=== PATIENT | male | born 1955 | race Caucasian/White ===

== ENCOUNTER → 2021-03-04 | Outpatient (CLI) | payer MEDICARE, OTHER ==
--- NOTE | 2021-03-04 15:58 | CT ---
EXAMINATION TYPE: CT pelvis wo con DATE OF EXAM: 03/04/2021 COMPARISON: None. HISTORY: Pelvic pain, bone pain. Pt mentioned issue with hardware CT DLP: 358.50 mGycm Automated exposure control for dose reduction was used. FINDINGS: Partial visualization of long segment interpedicular rods and screws through the lumbar spine extendi ng into the left and right iliac bone. Alignment is satisfactory. No suspicious surrounding lucency. Alignment in the lower lumbar spine is satisfactory with moderate to severe disc space narrowing. Sac roiliac joints are symmetric and thought within normal limits. Pubic symphysis is intact. Hip joints show mild to moderate axial joint space loss and mild acetabular spurring. There is a stimulator ezekiel ce in the anterior pelvic wall with leads going posteriorly extending into the posterior subcutaneous tissue of the upper to mid lumbar spine on the localizer. No suspicious small or large bowel dilatation. There are a few distal colonic diverticula near juncti on of left and sigmoid colon. Prostate gland upper limits of normal in size. No free fluid in pelvis. No groin hernia or adenopathy. Mild to moderate calcified plaque of the aorta extends into branch ve ssels. IMPRESSION: As above.
== END | disposition home or self-care (01) ==
LOC: RADCTMAIN 15:14
PROVIDERS: ATTEND Orthopaedic Surgery
DX: R10.2 Pelvic and perineal pain (principal)
CPT/HCPCS: 72192

== ENCOUNTER 2021-06-22 07:30 | Inpatient (IN) | payer MEDICARE, OTHER ==
[2021-08-25 11:45] VITALS: BMI 23.7
[2021-08-31] MEDS ORDERED: GABAPENTIN 300 MG CAP PO PRN (05:00)
[2021-08-31] MEDS ORDERED: ONDANSETRON 4 MG/2 ML VIAL IVP PRN ×2 (05:00→14:48)
[2021-08-31] MEDS ORDERED: TRANEXAMIC ACID IN NACL,ISO-OS 1,000 MG in SALINE 1 100ML.BAG IVPB PRN (05:00)
[2021-08-31] MEDS ORDERED: ACETAMINOPHEN TAB 500 MG TAB PO PRN (05:00)
[2021-08-31] MEDS ORDERED: VANCOMYCIN 1,000 MG in SODIUM CHLORIDE 0.9% 250 ML IVPB PRN (05:00)
[2021-08-31] MEDS ORDERED: MIDAZOLAM 2 MG/2 ML VIAL IV PRN (05:45)
[2021-08-31] MEDS: LACTATED RINGERS 1,000 ML IV SCH (06:10)
--- NOTE | 2021-08-31 06:32 | P.HPOR ---
History of Present Illness H&P Date: 08/16/21 Chief Complaint: Low back pain, LE weakness, deformity Date of :[birth year] R14Age: 65 year Height: 5'11" Weight: 172 lbs BMI: 23.99 kg/m2 Occupation: Retired VAS: 6 CHIEF COMPLAINT: S/P T2-Pelvis PLIF HISTORY: Xrays No new xrays taken in office Trauma or injury No Work-Related No Pain description aching, sharp. Location posterior diffuse Activity Modification yes, unable to stand or ambulate for extended periods of time. Hand Dominance right DOS: T12-L5 PLIF [place] [address] Adan Ahn D.O in [place] TREATMENTS COMPLETED: 6 weeks of PT completed? No Physician directed home exercise completed? Yes, only exacerbates his symptoms. Medications yes List: Motrin 800mg, Zanaflex 4mg without improvement to his symptoms. Hydrocodone without relief. Alternative interventions Chiropractic?: No Brace: No Injections No RFA: No SUBJECTIVE: Patient presents to the office for another pre-operative appointment regarding his lumbar spine. Patient reports no significant changes to his symptoms since the time of the last appointment. He has failed conservative treatments and is ready to proceed with the planned procedure. All questions and concerns are addressed and the patient wishes to proceed with the planned procedure. Patient otherwise continues to deny any bladder or bowel issues, no perineal numbness/tingling, and ambulates independently.we discussed at length the different options for him and continue sought surgical intervention. His sister is present with him today agree. We discussed at length his smoking habits he needs to stop this however due to his deformity and current neurologic situation postponing surgery further would be detrimental to him, HPI: Patient last presented to the office on 06/14/2021 for a pre-operative appointment regarding his lumbar spine. Since the time of the last appointment the patient denies any improvements to his symptoms. Overall he notes that he is unable to complete most of his daily functions due to the severity of his pain and symptoms. Patient states that his current symptoms are debilitating and he has failed to improve with all conservative treatments tried thus far. He is currently taking Rockbridge 10mg TID with no improvements to his pain. He does still ambulate with a cane as he cannot walk without one due to being a fall risk. Patient otherwise denies any bladder or bowel issues, no perineal numbness/tingling, and ambulates with the use of a cane. All questions and concerns were addressed and the patient wishes to postpone with the planned procedure and would like to do this at a later date. I did actively warn them of the risks associated with postponing the surgery. Patient last presented to the office on 04/19/2021 for a re-check of his low back. He does present to the office to review the results of his CT myelogram of the thoracic and lumbar region obtained on 03/31/2021 Since the time of the last appointment he notes that he has seen no improvements to his symptoms. Regarding his symptoms he notes no improvements with conservative treatments. Due to his symptoms he notes continued difficulty with completing many of his daily functions due to the severity of his symptoms. He does ambulate with a cane as he cannot walk without one due to being a fall risk. Patient otherwise denies any bladder or bowel issues, no perineal numbness/tingling, and ambulates with the use of a cane. Mr. Díaz last presented to the office on 03/01/2021 for an evaluation of his low back. To review, the patient reports that in 2013 he did have a T12-L5 fusion. Additionally, he did have a spine stimulator implanted in 2017 that also did not improve his symptoms. Initially after the operation he reported good results and reduced pain. More recently he was doing some stretches and felt a "pop" in his low back. Since this he states that he has had increased pain about the low back that has severely limited his daily activities. This pain is diffuse throughout the low back and he denies any pain radiating down into the lower extremities. His pain increases with any ambulation or standing for extended periods of time. Regarding treatments Gerald states that he does take Motrin 800mg and Zanaflex 4mg PRN without any improvements to his symptoms. Additionally, he does do home exercises but this only aggravates his symptoms. Otherwise the patient denies any bladder or bowel issues. He presents to the office with the use of a cane for ambulation. The patients' past social, medical, family, surgical history, as well as review of systems, have been reviewed. Please refer to the Neurosurgery History and Physical form that has been scanned in to our electronic medical record system. Review of Systems 14 points review of systems completed and as stated in HPI, all other systems reviewed are negative. Past Medical History Past Medical History: Osteoarthritis (OA) History of Any Multi-Drug Resistant Organisms: None Reported Past Surgical History: Appendectomy, Back Surgery, Orthopedic Surgery Additional Past Surgical History / Comment(s): Back surgery in his mid 50's, left hand surgery, spinal cord implant(non-functioning). Past Anesthesia/Blood Transfusion Reactions: No Reported Reaction Past Psychological History: Anxiety, Bipolar Smoking Status: Current every day smoker Past Alcohol Use History: Occasional Additional Past Alcohol Use History / Comment(s): Smoker of 1 ppd since 19 yrs of age. Past Drug Use History: None Reported - Past Family History Mother Family Medical History: Cancer Additional Family Medical History / Comment(s): "Had blood clot in brain and ". Medications and Allergies Home Medications Medication Instructions Recorded Confirmed Type Benztropine Mesylate [Cogentin] 0.5 mg PO HS 08/25/21 08/31/21 History Ginseng 100 mg PO DAILY 08/25/21 08/25/21 History HYDROcodone/APAP 10-325MG [Rockbridge 1 tab PO TID 08/25/21 08/25/21 History 10-325] Magnesium (Unknown Dose) 1 tab PO HS 08/25/21 08/25/21 History Multivitamins, Thera [Multivitamin 1 tab PO 1200 08/25/21 08/25/21 History (formulary)] OLANZapine [ZyPREXA] 15 mg PO HS 08/25/21 08/31/21 History Farner-3 Fatty Acids/Fish Oil [Fish 1 each PO DAILY 08/25/21 08/25/21 History Oil 1,000 mg Softgel] Potassium (Unknown Dose) 1 tab PO HS 08/25/21 08/25/21 History QUEtiapine [SEROquel] 100 mg PO HS 08/25/21 08/31/21 History lamoTRIgine [LaMICtal] 25 mg PO 1200 08/25/21 08/31/21 History lamoTRIgine [LaMICtal] 200 mg PO QAM 08/25/21 08/25/21 History Allergies Allergy/AdvReac Type Severity Reaction Status Date / Time melatonin Allergy Chest Verified 08/31/21 05:59 Pressure Physical Examination Osteopathic Statement: *. No significant issues noted on an osteopathic structural exam other than those noted in the History and Physical/Consult. PHYSICAL EXAMINATION: General: Awake, alert, appropriate for age, in no acute distress. HEENT: No unusual neck masses around region of lateral neck triangle, thyroid, supraclavicular groove Heart: Regular rate and rhythm, normal S1, S2 and no murmur/gallop. Lungs: Clear to auscultation bilaterally with no use of accessory muscles. Extremities: Skin warm and dry without acute lesions, coloration, temperature, skin intact, no tenderness or erythema Integument: Hairy patches: Absent Dorsal skin dimples: Absent Cafe au lait spots: Absent Surgical incisions: No Palpation: Please see Pain drawing on Intake sheet for further detail. Midline spinal tenderness: No E6 Paralumbar tenderness: Yes L>R E6 Parathoracic tenderness: No E6 Buttocks tenderness: No E6 Special findings: No POSTURAL and MUSCULO-SKELETAL EVALUATION: Coronal Balance: NEUTRAL Recumbent testing: Patient is Not able to lay flat on back Sagittal Balance: Positive Shoulder Profile: LEVEL Pelvic Girdle: LEVEL Neck ROM: UNRESTRICTED Lumbar ROM: RESTRICTED Shoulder ROM: Symmetrical Hip ROM: Symmetrical Knee ROM: Symmetrical Hands: Normal appearance, symmetrical Feet: Normal appearance, Symmetrical VASCULAR STATUS : LEFT RIGHT Wrist Pulses INTACT INTACT Pedal Pulses (Dors. pedis & post.tibialis) INTACT INTACT Color NORMAL NORMAL Edema Absent Absent NEUROLOGIC EXAMINATION: Mental Status:Awake and alert, fully oriented, with normal attention, concentration and memory, and fluent, appropriate speech. Cranial Nerves: I: Olfactory not tested. II: Visual acuity normal, no visual field deficit noted with confrontation. III,IV: Normal pupillary reflexes & intact extraocular movements without nystagmus. V,: Intact symmetrical facial sensation. VII: Intact symmetrical facial motor movement VIII: Hearing intact. IX,X: Intact gag, swallow, & normal voice. XI: Sternocleidomastoid, trapezius function intact. XII: Tongue midline with normal movements. L'hermitte's Sign: Negative / absent Spurling'Sign: Absent bilaterally. Cubital percussion test: Absent bilaterally. Chiara-Tinel sign - Carpal region: Absent bilaterally. Straight Leg Raising: Absent bilaterally. Crossed straight leg raise: negative O8 MOTOR EXAM (0-5/5, N/T) STRENGTH RIGHT LEFT Shoulder Abd (not part of the DEVON score) 5 5 Elbow Flexors 5 5 Elbow Extensor 5 5 Wrist Dorsiflexors 5 5 Finger Abductor 5 5 Agricultural Scientist 5 5 Hip Flexor (Not part of DEVON Motor score) 4 4 Knee Flexor 4 4 Knee Extensor 4 4 Ankle dorsiflexor 4 4 Ankle plantarflexion 4 4 Extensor hallucis 4 4 Generalized weakness in LE b/l without focal deficits. Pt has difficulty getting around secondary to his deformity at this time although therapy is helping him with this. REFLEXES(0-4/2, NT) RIGHT LEFT Upper Extremities 2 2 Lower Extremities 1 2 Pathological Reflexes RIGHT LEFT Zapata's Absent Absent Clonus Absent Absent Babinski Absent Absent # Indicates mechanical impairment Muscle appearance: Symmetrical, without signs of atrophy or dystrophy. Rectal Tone:Deferred Normal, strong with volition control Sensory system (0-4, N/T) Test type RU GABRIEL RL LL Joint-Position 2 2 2 2 Vibration 2 2 2 2 Pain & LT sense 2 2 2 2 Dermatomal Deficit: None None L3-4 L3, L4, L5, S1 Gait and Functional Evaluation: Ambulatory aids: independently Romberg's test: Intact bilaterally Toe heel walk / heel-toe walk intact while maintaining satisfactory balance? No Squatting/straightening w/o assistance to a min of 60 degree knee flexion? No Single leg stance: intact Trendelenburg sign negative bilaterally Hand and finger dexterity intact bilaterally? yes Disdiadochokinesis examination negative bilaterally? yes Results XRay taken on 03/01/21 of Lumbar, Pelvis Spine: Xrays of the L spine show post surgical changes from L2-pelvis with instrumentation screws and rods at these levels b/l. The proximal portion has had failure with the rods and screws at L2 no longer associated. There is local kyphosis at L2-3 and L1-2 related to proximal junctional failure from this incident. There is severe erosion of the L1 VB secondary to spondylosis and the kyphosis resulting. The remainder of the screws are in position with no evidence of failure or loosening. There is some interbody fusion processes noted, however no good posterolateral bone visualized. There is a sub cutaneous stimulator noted in the L spine. There are no other fractures or lesions noted. AP pelvis shows hardware as mentioned. No fracture or dislocation b/l hip OA CT Myelogram of the thoracic spine completed on 03/31/[address] Santiago indicates: Widespread spondylotic changes noted with flattening of the normal kyphosis. There is disc bulges noted at the lower thoracic segments not causing significant stenosis. There is no fracture noted at this time. CT Myelogram of the lumbar spine completed on 03/31/[address] Santiago indicates: There is sagittal and coronal deformity noted due to hardware failure at L2 and L2-3 failure. There is vacuum disc phenomena noted at these levels as well as collapse of L1 secondary to old fracture in this area. There is kyphotic alignment due to these factors along with hardware failure and jia disengagement from the screws. Set screws noted floating in soft tissues in this area. There is stenosis noted at the L1-3 levels as well. There is fusion noted below this at L3-P fusion with PL fusion noted. NO other fracture noted. No lesions. Assessment and Plan Assessment: It was my pleasure to have seen and examined Gerald. I reviewed the patient's clinical syndrome, physical findings, and imaging studies during the appointment today. It is my impression that the patient has a diagnosis of. 1. 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 LE weakness 4. Neurogenic claudication 5. Mechanical back pain I outlined the natural course history without intervention and various interventional options. Plan: Gerald Díaz is a 65 y/o white male presenting for evaluation of lumbar pain with bilateral lower extremity radiculopathy. It was my pleasure to have seen and examined Gerald Díaz. In our visit today we have had a chance to go over subjective complaints, physical examination findings and treatments including the natural course history without intervention and various interventional options. The patients imaging demonstrates, Xrays: of the L spine show post surgical changes from L2- pelvis with instrumentation screws and rods at these levels b/l. The proximal portion has had failure with the rods and screws at L2 no longer associated. There is local kyphosis at L2-3 and L1-2 related to proximal junctional failure from this incident. There is severe erosion of the L1 VB secondary to spondylosis and the kyphosis resulting. The remainder of the screws are in position with no evidence of failure or loosening. There is some interbody fusion processes noted, however no good posterolateral bone visualized. There is a sub cutaneous stimulator noted in the L spine. There are no other fractures or lesions noted. AP pelvis shows hardware as mentioned. No fracture or dislocation b/l hip OA. CT myelogram lumbar: There is sagittal and coronal deformity noted due to hardware failure at L2 and L2-3 failure. There is vacuum disc phenomena noted at these levels as well as collapse of L1 secondary to old fracture in this a yady. There is kyphotic alignment due to these factors along with hardware failure and jia disengagement from the screws. Set screws noted floating in soft tissues in this area. There is stenosis noted at the L1-3 levels as well. There is fusion noted below this at L3-P fusion with PL fusion noted. NO other fracture noted. No lesions. CT myelogram thoracic: Widespread spondylotic changes noted with flattening of the normal kyphosis. There is disc bulges noted at the lower thoracic segments not causing significant stenosis. There is no fracture noted at this time.On physical exam, Gerald Díaz demonstrates Generalized weakness in LE b/l without focal deficits. I have explained to the patient that as their condition progresses it will cause further neurological deficits and eventual paralysis. Based on the patients imaging, physical exam, and the rapid progression and disabling nature of their symptoms, at this time I recommend surgery in the form or a: Revision decompression and fusion from T8-pelvis. I discussed the risk and benefits of this procedure at length with Gerald Díaz. The patient and his significant other agreed to considered pursuing the procedure abovementioned. Prior to surgery, she should follow up with her PCP (Cardio, ID, IM etc) for clearance. Questions were invited and answered, and the patient wishes to proceed as outlined below. Currently, I am recommendin.Revision Decompression and fusion from T8-pelvis 2.Follow up with PCP for surgical clearance 3.Review of surgical risks and benefits as well as an educational packet on the proposed surgical procedure. Risks: All surgical procedures come with inherent risks, including those related to positioning, anesthesia, intraoperative findings, and postoperative complications. It is important to understand that surgery does not come with any guarantee of a successful outcome as complications and adverse events are always possible. The patient was given a handout in office today discussing the surgical procedure and risks associated with the intervention, both of which were discussed with the patient. These risks include but are not limited to the following: * Experiencing same, different or even worse symptoms in back, neck, arms, or legs compared to before surgery. Requiring further surgery or other forms of treatment presently or at some time in the future at same or other levels of the intended spine surgery. On an extreme but fortunately relatively rare basis severe complication such as blindness, stroke, heart attack, temporary and/or permanent nerve in jury, paralysis, coma, or may occur, sometimes without known explanation. Surgical complications may include but are not limited to risk of infection, fluid accumulation in the surgical dissection site, including a seroma or hematoma, that requires additional surgery, wound drainage, bleeding, new numbness or weakness, vision changes/loss, spinal fluid leakage, non-healing and/or infected incision, headaches, difficulty or inability to swallow, hoarseness, hemopneumothorax, pneumothorax, impotence, retrograde ejaculation, vaginal dryness; injury to nerves, spinal cord, blood vessels, lymphatics or other vital organs (i.e., bowel injury, injury to the great vessels); heterotopic bone formation; complications related to the hardware such as screws, rods, cages including misplaced hardware, device failure, instrumentation at the wrong spine level, hardware fracture/breakage, or hardware loosening; vertebral failure of the spinal column above or below the newly placed hardware; retained surgical instrumentations or devices and the need for further surgery. * Medical risks of the planned spine surgery include but are not limited to generalized Infections to the whole body or local areas outside of the surgical site (sepsis), heart attack, bleeding, anaphylaxis, meningitis, seizure, epilepsy, hearing loss, burn moctezuma, laceration of the head or other areas of the body, bruising, hypersensitivity of the skin, bladder over distension; allergic reaction; shoulder injury related to positioning; fat, blood and air clots to other areas of the body like heart, lungs, brain; failure of internal organs such as lungs, kidneys, liver and excessive bleeding. If blood transfusions are necessary, note that transfusions may cause intolerance reactions such as anaphylaxis or other complex reactions. Despite best efforts, the results of spine surgery might not heal in terms of bone, soft tissues such as skin, fascia, ligaments, and joints. Additionally, in order to achieve best possible results, spine surgery may be carried out beyond the initially planned levels and involve decompression, fusion including insertion of hardware at levels other than the original intended area of surgical interest change some portions of the procedure in order to ensure the best possible outcomes. With spine surgery and spinal fusion, there are different off label uses of inst rumentation (devices, implants and hardware) as well as biological substances (bone morphogenic proteins, demineralized bone matrix) as well as using extra bone from allograft sources (i.e. cadaver bone) or autograft (iliac crest bone, ribs, or the spine itself). The patient has been given information about these practices and their inherent risks and benefits. [facility] is an educational center that serves as a training facility for neurosurgical and orthopedic spine residents and fellows. Residents are physicians who are completing their surgical intensive training following [facility]. They assist in the operating room with direct supervision of the attending surgeons. Peck are surgeons who have completed their training and eligible for board certification. They have opted for an elective year of more specialized training in their field. They assist in the operating room under the supervision of the attending surgeons. Physician assistants are medically trained surgical providers who function in the outpatient, inpatient, and operating room setting under the direct supervision of the attending surgeon. [facility] has multiple operating rooms with single and overlapping rooms running daily. They currently function under the required guidelines as produced by the [facility] Finance Committee with regards to the overlapping rooms and will continue to comply with changes to this policy as they occur. The requirements include and are complied with as follows: (1) the critical portions of the overlapping rooms will not occur at the same time, (2) the attending physician will be physically present during the critical portions of the procedure and immediately available during the entire case, and (3) a back-up attending is designated should the primary attending not be immediately available. The patient has had a chance to review all the listed information, has been given print outs detailing this information, and has had all his/her questions answered to their satisfaction.discussed this with him and his sister who is in the room with him.discussed his smoking habits on how he needs to continue to quit smoking his cutback quite a bit however he is unable to completely stop smoking however given his neurologic deficit as well as dysphoria as well as hardware failure postponing surgery again is not with him his best interest to f eel. It was my pleasure to have seen and examined Gerald Díaz. In our visit today we have had a chance to go over my understanding of our patient's current condition, the natural course history without intervention and various interventional options. Questions were invited and answered, and the patient wishes to proceed as outlined above. I have seen and examined the patient for 25 minutes and we have spent more than 50% of the time in repeat and detailed counseling about the patient's condition, its natural course history with out and as much as can be predicted with surgery and re-review of various surgical treatment options. In conclusion, Gerald Díaz and his sister. requested we proceed with the above suggested surgery and are willing to accept risks and limitations of the suggested surgery as nature of the disease process and our best attempts at treatment for the condition. Thank you again for allowing us to be part of your patient's care. Please don't hesitate to contact me if you have any further questions. Signed and authenticated by: [employer] P:\\\\ppart\\\\Files\\\\L [id number] \\d Duane [facility] [address], [place] [address]
--- NOTE | 2021-08-31 06:44 | P.PN ---
Progress Note - Text Progress Note Date: 08/31/21 History and Physical UPDATE I have seen and examined the patient and reviewed the history and physical. There appear to be no significant changes in the patient's current medical status as outlined in the current History and Physical.
[2021-08-31] MEDS ORDERED: fentaNYL (PF) 50 MCG/ML 2 ML AMP ONE (07:21)
[2021-08-31] MEDS ORDERED: SODIUM CHLORIDE 0.9% 100 ML BAG ONE (07:21)
[2021-08-31] MEDS ORDERED: LIDOCAINE 1% INJ 10MG/ML (20 ML MDV) ONE (07:21)
[2021-08-31] MEDS ORDERED: PHENYLEPHRINE-0.9% NACL SYG 1,000 MCG/10 ML SYRINGE ONE (07:21)
[2021-08-31] MEDS ORDERED: PROPOFOL 10 MG/ML 20 ML VIAL IV ONE (07:21)
[2021-08-31] MEDS ORDERED: NEOSTIGMINE 1 MG/ML 10 ML VIAL ONE (07:21)
[2021-08-31] MEDS ORDERED: GLYCOPYRROLATE 0.2 MG/ML 2 ML VIAL ONE (07:21)
[2021-08-31] MEDS ORDERED: MIDAZOLAM 2 MG/2 ML VIAL ONE (07:21)
[2021-08-31] MEDS ORDERED: ceFAZolin 1,000 MG VIAL ONE (07:21)
[2021-08-31] MEDS ORDERED: HYDROmorphone (PF) 1 MG/ML ONE (07:21)
[2021-08-31] MEDS ORDERED: ROCURONIUM 10 MG/ML (5 ML VIAL) IV ONE (07:21)
[2021-08-31] MEDS ORDERED: TRANEXAMIC ACID IN NACL,ISO-OS 1,000 MG/100 ML BAG ONE (07:21)
[2021-08-31] MEDS ORDERED: SUCCINYLCHOLINE CHLORIDE 100 MG/5 ML SYR IV ONE (07:21)
[2021-08-31] MEDS ORDERED: SODIUM CHLORIDE 0.9% IRRIG 1,000 ML BTL IRRIGATION ONE (07:21)
[2021-08-31] MEDS ORDERED: HEPARIN SODIUM,PORCINE 10,000 UNIT/ML 1 ML VIAL ONE (07:21)
[2021-08-31] MEDS ORDERED: LACTATED RINGERS 1,000 ML IV ONE ×6 (07:25→14:05)
[2021-08-31] MEDS ORDERED: THROMBIN (RECOMBINANT) 5,000 UNIT VIAL TOPICAL ONE ×2 (07:30→10:11)
[2021-08-31] MEDS ORDERED: BUPIVACAIN-EPI 0.25%-1:200,000 30 ML VIAL SQ ONE (07:30)
[2021-08-31] MEDS ORDERED: GELATIN SPONGE,ABSORB (LARGE) 1 EACH SPONGE TOPICAL ONE (07:30)
[2021-08-31] MEDS ORDERED: ceFAZolin 3,000 MG in SODIUM CHLORIDE 0.9% IRRIGATIO 3,000 ML IRRIGATION ONE ×8 (08:44→09:55)
[2021-08-31] MEDS ORDERED: VANCOMYCIN 1,000 MG VIAL MISCELLANE ONE ×2 (09:23→13:38)
[2021-08-31] MEDS ORDERED: TOBRAMYCIN SULFATE 1.2 GM VIAL MISCELLANE ONE (09:23)
--- NOTE | 2021-08-31 14:28 | FL ---
EXAMINATION TYPE: FL guidance operating room DATE OF EXAM: 08/31/2021 HISTORY: Fluoroscopy time 3 minutes and 9 seconds of fluoroscopy provided. IMPRESSION: 1. Fluoroscopy time.
--- NOTE | 2021-08-31 14:29 | XR ---
EXAM TYPE: LUMBAR SPINE X RAY SERIES COMPARISON: NONE HISTORY: Hardware placement TECHNIQUE: 39 views are submitted. FINDINGS: Images are limited resolution due to intraoperative technique. Extensive postsurgical changes are not ed. The screws involving the sacrum extending well past the anterior margin the sacrum. IMPRESSION: 1. Intraoperative hardware placement
[2021-08-31] MEDS ORDERED: MAGNESIUM HYDROXIDE 2,400 MG/10 ML CUP PO PRN (14:48)
[2021-08-31] MEDS ORDERED: CYCLOBENZAPRINE 5 MG TAB PO PRN (14:48)
[2021-08-31] MEDS ORDERED: SENNOSIDES-DOCUSATE SODIUM 1 EACH TAB PO PRN (14:48)
[2021-08-31] MEDS ORDERED: HYDROmorphone 0.5 MG/0.5 ML SYRINGE IVP ONE ×4 (15:03→15:23)
[2021-08-31] MEDS ORDERED: NALOXONE 0.4 MG/ML 1 ML VIAL IV PRN (15:41)
[2021-08-31] MEDS ORDERED: HYDROmorphone PCA 10 MG/50 ML BAG IV PRN (15:41)
[2021-08-31] MEDS ORDERED: MORPHINE SULFATE 4 MG/ML SYRINGE IV ONE (15:43)
--- NOTE | 2021-08-31 15:45 | P.PN ---
Progress Note - Text Progress Note Date: 08/31/21 Postop: . Patient seen and examined they are doing well. Their pain is under control at this time. They are moving all 4 extremities without any issues. Vital signs are stable.. They are currently recovering and will be transferred to the floor once deemed stable by the PACU team and anesthesiologist. No Other issues at this time they deny fever chills shortness of breath or chest pain. Medical management pending Continue with intravenous fluids, pain medication, muscle relaxers, home medication Soft diet to start to advance as tolerated We will evaluate the patient in the morning.
[2021-08-31 16:08] LABS: Glucose,Whole Blood 135 mg/dL (75-99)
[2021-08-31] MEDS ORDERED: LORazepam 2 MG/ML INJ IV PRN (16:50)
[2021-08-31] MEDS: SODIUM CHLORIDE 0.9% 1,000 ML IV SCH (16:58)
[2021-08-31] MEDS ORDERED: SODIUM CHLORIDE 0.9% 500 ML 500 ML IV ONE (17:02)
[2021-08-31] MEDS: GABAPENTIN 300 MG CAP PO SCH ×2 (17:18→20:58)
[2021-08-31] MEDS: polyethylene glycoL 3350 17 GM POWD.PACK PO SCH (20:58)
[2021-08-31] MEDS: OLANZapine 7.5 MG TAB PO SCH (20:58)
[2021-08-31] MEDS: BENZTROPINE MESYLATE 0.5 MG TAB PO SCH (20:58)
[2021-08-31] MEDS: QUEtiapine 100 MG TAB PO SCH (21:06)
[2021-08-31] MEDS: NICOTINE 21MG/24HR PATCH TRANSDERM SCH (21:06)
[2021-08-31] MEDS: HYDROmorphone 0.5 MG/0.5 ML SYRINGE IVP PRN (22:15)
[2021-09-01] MEDS ORDERED: ACETAMINOPHEN TAB 325 MG TAB PO PRN (01:20)
[2021-09-01] MEDS: SODIUM CHLORIDE 0.9% 1,000 ML IV SCH ×2 (04:56→20:03)
--- NOTE | 2021-09-01 06:58 | CONS ---
CONSULTATION REASON FOR CONSULTATION: Medical management consult. He is status post lumbar surgery per Dr. Santiago. He is on his home medicines for bipolar, schizophrenia. He is very anxious, wants to get out of the bed even though he just had surgery. We gave him Ativan for sedation. Medicines were reviewed. REVIEW OF SYMPTOMS: 14-point review of systems otherwise negative. PHYSICAL EXAMINATION: He is lethargic, swollen in the face. Temp 97-98, pulse is 90s to low 100s. Blood pressure is 90s/50s, O2 95% on 2 L. CARDIOVASCULAR S1, S2. LUNGS: Clear. GI soft, nontender. Negative Homans. ASSESSMENT: 1. Status post lumbar laminectomy. 2. Schizophrenia, bipolar. 3. Hypertension. 4. Possibly some dehydration secondary to surgery. We will give him some fluids overnight due to hypotension. Prognosis guarded. MMODL / DEBRAN: [id number] /
--- NOTE | 2021-09-01 07:44 | P.PN ---
Subjective Progress Note Date: 09/01/21 Principal diagnosis: Status post revision T10 to pelvis decompression and fusion with bilateral open SI fusion Patient seen and examined today. Patient had just returned from CT scan, states he is doing well. 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 Last night there was a report of low blood pressure, bolus provided of 500 mL. Pressures this morning are stable. The night nurse states that patient sat up on the edge of the bed and tolerated activity well. Ashton catheter remains with adequate output. Surgical incision is clean dry and intact no shadowing noted on dressing. Hemovac is present on the right of the incision, last night drain was compressed. Informed nurses this morning that it needs to be opened to gravity. Patient denies any fever/chills, nausea/vomiting, or chest pain. Denies any perineal numbness or tingling. Objective - Vital Signs Vital signs: Vital Signs Temp 99.4 F 09/01/21 04:32 Pulse 73 09/01/21 04:32 Resp 18 09/01/21 00:50 BP 90/53 09/01/21 04:32 Pulse Ox 96 09/01/21 04:32 Intake & Output 08/31/21 09/01/21 09/01/21 18:59 06:59 18:59 Intake Total 5077 75 Output Total 1460 1360 Balance 3617 -1285 Weight 76.9 kg Intake: IV 4152 75 0.9 75 Intake, IV Titration 725 Amount Sodium Chloride 0.9% 1, 225 000 ml @ 75 mls/hr IV . [id number] [facility] Rx#:[id number] Sodium Chloride 0.9% 500 500 ml 500 ml @ 999 mls/hr IV .Q31M ONE Rx#:[id number] Oral 200 Output: Drainage 510 Back 510 Urine 760 850 Estimated Blood Loss 700 Other: Voiding Method Indwelling Catheter Indwelling Catheter - Exam Physical Examination General: The patient is awake and alert, in no acute distress Skin: Skin is warm and dry with no obvious rashes or lesions. Hairy patches absent, no dorsal skin dimples, no cafe au lait spots. There is a midline surgical incision present to the thoracic and lumbar region. Eye: Pupils are equal, round and reactive to light, extra-ocular movements are intact; there is normal conjunctiva bilaterally. Neck: The neck is supple, there is no tenderness and ROM intact. Cardiovascular: There is a regular rate and rhythm. No murmur, rub or gallop is appreciated. Respiratory: Lungs are clear to auscultation, respirations are non-labored, breath sounds are equal. Gastrointestinal: Soft, non-distended, non-tender abdomen . Back: There is slight tenderness to palpation in the midline, paralumbar, parathoracic region. Pt denies any buttock pain or tenderness. There is no obvious deformity . Musculoskeletal: ROM limited secondary to pain and stiffness from surgical procedure. Shoulder abduction 5/5, elbow flexors 5/5, wrist dorsiflexors 5/5. finger abductor 5/5, picture enlarger 5/5, hip flexor 4/5, knee flexor 4/5, ankle dorsiflexor 4/5, ankle plantarflexion 4/5 and extensor hallucis 4/5. Neurological: CN 2-12 intact. There are no obvious motor or sensory deficits. Movement and coordination equal and intact. Sensory exam to light touch intact C5-T1 and intact from L2-S1. Reflexes 2/4 in bilateral upper and lower extremities. Negative Hoffmans, babinski, and clonus signs. Psychiatric: Cooperative, appropriate mood & affect, normal judgment. - Labs Labs: Abnormal Lab Results - Last 24 Hours (Table) 08/31/21 Range/Units 16:06 POC Glucose (mg/dL) 135 H (75-99) mg/dL Assessment and Plan Assessment: Postop day 1: Status post revision T10 to pelvis decompression and fusion with bilateral open SI fusion Plan: Plan: -Appreciate portrait consultant and team management. -Activity: Ambulate QID, OOB all meals, up and about, limit lifting bending twisting to less than 5 lbs. Use walker or cane if needed for stability. -Daily PT/OT, increase ambulation strength and balance. -Brace when up and about, not needed in bed or chair -Pain control: Adequate at this time with Dilaudid BEATING MACHINE OPERATOR -Meds: reviewed -GI ppx: senna, Miralax -DC ashton when up and about, bedside commode if needed -DVT PPX: OK to restart Heparin tonight -Hygiene: Shower today. Maintain dressing clean and dry. Meticulous cleaning after BMs away from the incision site -Drains: Maintain for now at gravity. -Encourage IS 10x/hr -Dispo: Anticipate discharge home in the next 24-48hrs with homecare *I reviewed and discussed this case with my attending Dr. Santiago, whom has reviewed this chart and films and is in agreement with assessment and plan of care as outlined above. I have personally seen and examined the patient, performed the documentation and the assessment and plan as written. Number of minutes spent on the visit: 20m Time with Patient: Less than 30
[2021-09-01] MEDS: GABAPENTIN 300 MG CAP PO SCH ×3 (08:56→22:21)
[2021-09-01] MEDS: NICOTINE 21MG/24HR PATCH TRANSDERM SCH (08:56)
--- NOTE | 2021-09-01 09:02 | CT ---
EXAMINATION TYPE: CT thor lumbar spine wo con DATE OF EXAM: 09/01/2021 COMPARISON: Presurgical outside studies March 31, 2021 HISTORY: post [id number] fusion CT DLP: 2065.6 mGycm Automated exposure control for dose reduction was used. FINDINGS: There is redemonstration of 5 lumbar type vertebra with mild height loss involving the L1 vertebra. T here is vertebroplasty at T10 and T11 levels. There are now posterior interpedicular rods and screws transfixing T10 level through the sacrum extending through the sacroiliac joints bilaterally. Alignme nt is stable and straightened. Posterior decompression changes over the lower spine with laminectomy defects and spinous process resection are redemonstrated. There is no posterior subcutaneous gas. The re is percutaneous drainage catheter terminating near the posterior L2 level. New Metallic disc mate rial along-L2 and L2-L3 levels. Persistent moderate to severe disc space narrowing L3-L4 through the L5-S1 levels. Review of axial images shows normal position appears satisfactory. [id number] calcified plaque of the abdominal aorta extends into iliac branch vessels. Waters catheter is noted within bladder. IMPRESSION: As above. Stable and satisfactory alignment after a longer segment fusion surgery.
[2021-09-01 09:56] LABS: Basophils # (A) 0.01 X 10*3/uL (0.00-0.10); Basophils % (A) 0.1 %; Eosinophils # (A) 0 X 10*3/uL (0.04-0.35); Eosinophils % (A) 0 %; HCT 28.4 % (39.6-50.0); HGB 9.2 g/dL (13.0-17.0); Immature Grans, Automated 0.6 %; Lymphocytes # (A) 1.41 X 10*3/uL (0.90-5.00); Lymphocytes % (A) 9.7 %; MCHC 32.4 g/dL (32.0-37.0); Mean Platelet Volume 10.2 fL (9.5-12.2); Monocytes # (A) 1.02 X 10*3/uL (0.20-1.00); NRBC Per 100 WBC 0 /100 WBCS (0.0-0.0); Neutrophils # (A) 11.94 X 10*3/uL (1.80-7.70); Neutrophils % (A) 82.6 %; Platelet Count 153 X 10*3/uL (140-440); RBC 2.63 X 10*6/uL (4.40-5.60); WBC 14.47 X 10*3/uL (4.50-10.00)
[2021-09-01 10:08] LABS: African American GFR (CKD) 81.8 (60.0-200.0); Anion Gap 9.3 mmol/L (10.00-18.00); BUN/Creat Ratio 10.64 Ratio (12.00-20.00); Blood Urea Nitrogen 11.7 mg/dL (9.0-27.0); Calcium 7.6 mg/dL (8.7-10.3); Carbon Dioxide 22.7 mmol/L (20.0-27.5); Globulin 1.5 g/dL (1.6-3.3); Non-African American GFR(CKD) 70.6 (60.0-200.0); Potassium 4.1 mmol/L (3.5-5.5); Total Bilirubin 0.7 mg/dL (0.30-1.20); Total Protein 4.5 g/dL (6.2-8.2)
[2021-09-01] MEDS: LACTATED RINGERS 1,000 ML IV SCH (10:39)
--- NOTE | 2021-09-01 12:02 | P.ANPRN ---
Procedure Note - Anesthesia - Invasive Line Right Central Line Time Out Performed: Yes (07) Date of Procedure: 08/31/21 Time of Procedure: 07:01 Location of Patient: PreOp Preparation: Sterile Prep, Sterile Dressing Ultrasound Used: Yes Purpose - Visualization and Identification of Vasculature: Yes Image Stored and Saved: Yes Narrative: Central line placement per sterile. Patient was placed in trendelenberg posture. Right side of the neck cleaned with Betadine iodine solution. Neck was draped. I nternal Internal jugular vein identified with ultrasound. 3% lidocaine infiltrated. Vein was entered with a finder needle over catheter. Guide wireless passed and confirmed with ultrasound. Double lumen central venous catheter threaded over the guide wire. Guide wire was pulled out and the line was suture to the skin. Then dressed with my biopatch and tegaderm. Patient tolerated the procedure very well with no apparent complications.
[2021-09-01] MEDS: MULTIVITAMINS, THERA 1 EACH TAB PO SCH (12:15)
[2021-09-01] MEDS: IPRATROPIUM-ALBUTEROL 3 ML NEB INHALATION SCH ×2 (15:27→19:40)
--- NOTE | 2021-09-01 15:30 | PN ---
PROGRESS NOTE This 65-year-old white male is still maintaining a low blood pressure 87/52 postop lumbar surgery. Temperature 99.6, O2 is 97 on room air. White count is 14.4, hemoglobin 9.2 postop. Neutrophils are high at 11.9. He remains on broad-spectrum antibiotics status post lumbar surgery. Albumin is low at 3. He had a thoracolumbar spine CT today which shows stable and satisfactory alignment after a longer segment fusion surgery, new posterior interpedicular rods and screws transecting T10 level metallic disc material along L2, L3, persistent moderate to severe disk narrowing at L3, L4, L5, S1. Continue with fluids postoperatively as he is hypotensive. Wean off LEAD REFINER due to hypotension. Urinal at the bedside. TLSO brace. Updraft treatments due to shortness of breath. Prognosis is guarded. PT/OT. Possibly home in the next couple of days. MMODL / IJN: [id number] /
[2021-09-01] MEDS ORDERED: DILTIAZEM 125 MG in SODIUM CHLORIDE 0.9% 100 ML IV SCH (19:45)
[2021-09-01] MEDS: HYDROmorphone 1 MG/ML 1 ML SYRINGE IVP PRN (20:30)
[2021-09-01] MEDS: QUEtiapine 100 MG TAB PO SCH (22:21)
[2021-09-01] MEDS: BENZTROPINE MESYLATE 0.5 MG TAB PO SCH (22:21)
[2021-09-01] MEDS: polyethylene glycoL 3350 17 GM POWD.PACK PO SCH (22:22)
[2021-09-01] MEDS: OLANZapine 7.5 MG TAB PO SCH (22:22)
[2021-09-02] MEDS: HYDROcodone/APAP 7.5-325MG 1 EACH TAB PO PRN ×2 (00:12→12:32)
[2021-09-02] MEDS: LACTATED RINGERS 1,000 ML IV SCH (03:16)
[2021-09-02] MEDS: SODIUM CHLORIDE 0.9% 1,000 ML IV SCH (06:34)
[2021-09-02] MEDS: GABAPENTIN 300 MG CAP PO SCH ×3 (08:22→22:13)
[2021-09-02] MEDS: NICOTINE 21MG/24HR PATCH TRANSDERM SCH (08:22)
[2021-09-02] MEDS: lamoTRIgine 100 MG TAB PO SCH (08:22)
[2021-09-02] MEDS: HYDROmorphone 1 MG/ML 1 ML SYRINGE IVP PRN ×2 (08:23→14:51)
--- NOTE | 2021-09-02 08:31 | P.PN ---
Subjective Progress Note Date: 09/02/21 Principal diagnosis: Status post revision T10 to pelvis decompression and fusion with bilateral open SI fusion Patient seen and examined today. Mr. Díaz is currently resting in bed. He states that his pain is not controlled at this time, medication will be adjusted. Patient had been moved to [address] [place] [address] last night due to new onset of atrial fibrillation. Patient is currently on a Cardizem drip. Vital signs stable. Patient is currently asymptomatic. Upon assessment of incision and drain; midline dressing of lumbar spine is clean dry and intact. Hemovac present to the right of the incision output of 160 mL last night. Hemovac dressings saturated and partially rolled up, dressing changed at this time with bedding and linen also. Patient tolerated rolling side to side and pulling himself up in bed. Patient states that the upper portion of his legs feel weak. Encouragement provided for patient to be up in chair and working with PT today. Awaiting TLSO brace to be delivered. Mr. Díaz denies any fever/chills, nausea/vomiting, or chest pain. Patient denies any numbness tingling into the lower extremities or perineal area. Patient states he is voiding adequately in urinal. Denies loss of bowel or bladder. Objective - Vital Signs Vital signs: Vital Signs Temp 98.0 F 09/02/21 03:43 Pulse 120 H 09/02/21 03:43 Resp 18 09/02/21 03:43 BP 100/50 09/02/21 03:43 Pulse Ox 95 09/02/21 03:43 Intake & Output 09/01/21 09/02/21 09/02/21 18:59 06:59 18:59 Intake Total 2900 20 Output Total 945 810 Balance 1954 - Intake: IV 20 Invasive Line 1 20 Intake, IV Titration 1300 Amount Sodium Chloride 0.9% 1, 1250 000 ml @ 75 mls/hr IV . [id number] [facility] Rx#:[id number] ceFAZolin 2 gm In Sodium 50 Chloride 0.9% 50 ml @ 100 mls/hr IVPB Q8HR [facility] Rx# :[id number] Oral 1600 Output: Drainage 70 160 Back 70 160 Urine 875 650 Other: Voiding Method Indwelling Catheter Urinal # Voids 0 - Exam Physical Examination Physical examination recalled from yesterday, any changes have been noted below: General: The patient is awake and alert, in no acute distress Skin: Skin is warm and dry with no obvious rashes or lesions. Hairy patches absent, no dorsal skin dimples, no cafe au lait spots. There is a midline surgical incision present to the thoracic and lumbar region, Hemovac present to the right of the surgical incision. Eye: Pupils are equal, round and reactive to light, extra-ocular movements are intact; there is normal conjunctiva bilaterally. Slight swelling noted due to surgical procedure. Neck: The neck is supple, there is no tenderness and ROM intact. Cardiovascular: There is a regular rate and rhythm. No murmur, rub or gallop is appreciated. Respiratory: Lungs are clear to auscultation, respirations are non-labored, breath sounds are equal. Gastrointestinal: Soft, non-distended, non-tender abdomen . Back: There is slight tenderness to palpation in the midline, paralumbar, parathoracic region. Pt denies any buttock pain or tenderness. There is no obvious deformity . Musculoskeletal: ROM limited secondary to pain and stiffness from surgical procedure. Shoulder abduction 5/5, elbow flexors 5/5, wrist dorsiflexors 5/5. finger abductor 5/5, bottle washer 5/5, hip flexor 4/5, knee flexor 4/5, ankle dorsiflexor 4/5, ankle plantarflexion 4/5 and extensor hallucis 4/5. Neurological: CN 2-12 intact. There are no obvious motor or sensory deficits. Movement and coordination equal and intact. Sensory exam to light touch intact C5-T1 and intact from L2-S1. Reflexes 2/4 in bilateral upper and lower extremities. Negative Hoffmans, babinski, and clonus signs. Psychiatric: Cooperative, appropriate mood & affect, normal judgment. - Labs CBC & Chem 7: 09/01/21 04:46 09/01/21 04:46 Labs: Abnormal Lab Results - Last 24 Hours (Table) 09/01/21 04 Range/Units 04:46 04:46 WBC 14.47 H (4.50-10.00) X 10*3/uL RBC 2.63 L (4.40-5.60) X 10*6/uL Hgb 9.2 L (13.0-17.0) g/dL Hct 28.4 L (39.6-50.0) % MCV 108.0 H (80.0-97.0) fL MCH 35.0 H (27.0-32.0) pg Immature Gran # 0.09 H (0.00-0.04) X 10*3/uL Neutrophils # 11.94 H (1.80-7.70) X 10*3/uL Monocytes # 1.02 H (0.20-1.00) X 10*3/uL Eosinophils # 0 L (0.04-0.35) X 10*3/uL Anion Gap 9.30 L (10.00-18.00) mmol/L BUN/Creatinine Ratio 10.64 L (12.00-20.00) Ratio Calcium 7.6 L (8.7-10.3) mg/dL AST 45 H (14-35) U/L Total Protein 4.5 L (6.2-8.2) g/dL Albumin 3.0 L (3.8-4.9) g/dL Globulin 1.5 L (1.6-3.3) g/dL Assessment and Plan Assessment: Postop day 1: Status post revision T10 to pelvis decompression and fusion with bilateral open SI fusion Plan: Plan: -Appreciate statistical consultant and team management. -Activity: Ambulate QID, OOB all meals, up and about, limit lifting bending twisting to less than 5 lbs. Use walker or cane if needed for stability. -Daily PT/OT, increase ambulation strength and balance. -TLSO Brace when up and about, not needed in bed or chair -Pain control: Adequate at this time, medications adjusted to scheduled. -Meds: reviewed -GI ppx: senna, Miralax -DVT PPX: Per medical -Hygiene: Shower today. Maintain dressing clean and dry. Meticulous cleaning after BMs away from the incision site -Drains: Maintain for now at gravity. -Encourage IS 10x/hr -Dispo: Anticipate discharge home in the next 24-48hrs with homecare. *I reviewed and discussed this case with my attending Dr. Santiago, whom has reviewed this chart and films and is in agreement with assessment and plan of care as outlined above. I have personally seen and examined the patient, performed the documentation and the assessment and plan as written. Number of minutes spent on the visit: 20m Time with Patient: Less than 30
[2021-09-02] MEDS: IPRATROPIUM-ALBUTEROL 3 ML NEB INHALATION SCH ×4 (08:35→20:15)
[2021-09-02] MEDS ORDERED: DEXTROSE 5% IN WATER 100 ML with AMIODARONE 150 MG IV ONE (11:20)
[2021-09-02] MEDS ORDERED: AMIODARONE 360 MG in DEXTROSE 5% IN WATER 200 ML IV ONE ×2 (11:30)
--- NOTE | 2021-09-02 12:31 | P.CRDCN ---
History of Present Illness History of present illness: HISTORY OF PRESENTING ILLNESS This is a pleasant 65-year-old male past medical history significant for anxiety, bilateral lower extremity radiculopathy s/p prior surgery. He does not follow with a database management specialist. We have been asked to see in consultation for new onset atrial fibrillation with RVR. Patient presents to the hospital for a planned procedure. On 08/31/21, He underwent revision T10 to pelvis decompression and fusion with bilateral open SI fusion by Ortho. Patient seen and examined at bedside, he states his lower back pain is not controlled. He denies any palpitations, dizziness, chest pain, shortness of breath, lightheadedness. He denies history of CAD, [place], Stroke, Diabetes, hypertension, high cholesterol, or atrial fibrillation. On 09/01/21, patient was noted to be tachycardic, found to be in atrial flutter with HR 150s-160s. Patient did have symptoms of lightheadedness only. He was transferred to . Started on Cardizem drip. Telemetry reviewed, patient has been in and out of atrial fibrillation and flutter with RVR. HR 140s this morning, Cardizem drip increased to 10mg/hr and patient converted appeared to be in atrial flutter with controlled ventricular rates DIAGNOSTICS EKG reveals atrial flutter with RVR, heart rates 154 Laboratory reviewed, WBC 14.4, hemoglobin 9.2, platelets 153, sodium 135, potassium 4.1, BUN 11, serum creatinine 1.1. Current home medications include Zyprexa, Lamictal, Seroquel, congentin and, potassium, Whitney, multivitamin REVIEW OF SYSTEMS At the time of my exam: CONSTITUTIONAL: Denies fever or chills. CARDIOVASCULAR: Denies chest pain, shortness of breath, orthopnea, PND or palpitations. RESPIRATORY: Denies cough. GASTROINTESTINAL: Denies abdominal pain, diarrhea, constipation, nausea or vomiting. MUSCULOSKELETAL: Denies myalgias. NEUROLOGIC: Denies numbness, tingling, headacbe or weakness. ENDOCRINE: Denies fatigue, weight change, polydipsia or polyurina. GENITOURINARY: Denies burning, hematuria or urgency with micturation. HEMATOLOGIC: Denies history of anemia or bleeding. PHYSICAL EXAMINATION Vitals blood pressure 100/58, heart rate 135, afebrile, saturations 97% on 3 L nasal cannula CONSTITUTIONAL: No apparent distress. HEENT: Head is normocephalic. Pupils are equal, round. Sclerae anicteric. Mucous membranes of the mouth are moist. No JVD. No carotid bruit. CHEST EXAMINATION: Lungs are clear to auscultation. No chest wall tenderness is noted on palpation or with deep breathing. HEART EXAMINATION: Irregular rate and rhythm. S1, S2 heard. No murmurs, gallops or rub. ABDOMEN: Soft, nontender. Positive bowel sounds. EXTREMITIES: 2+ peripheral pulses, no lower extremity edema and no calf tenderness. SKIN: Warm, dry NEUROLOGIC EXAMINATION: Patient is awake, alert and oriented x3. ASSESSMENT Paroxysmal atrial fibrillation, and atypical flutter with RVR, new onset -[id number] score 0, however, his this year will put him at 1 Status post revision T10 to pelvis decompression and fusion with bilateral open SI fusion on 08/31. PLAN Discontinue cardizem Start amiodarone bolus and IV drip Per Viki MITCHELL ok to start anticoagulation 48 hours after procedure We will start Eliquis 5mg BID tomorrow and consult case management for coverage Obtain 2D echocardiogram Check TSH Further recommendations based on clinical course Nurse practitioner note has been reviewed by physician. Signing provider agrees with the documented findings, assessment, and plan of care. Past Medical History Past Medical History: Osteoarthritis (OA) History of Any Multi-Drug Resistant Organisms: None Reported Past Surgical History: Appendectomy, Back Surgery, Orthopedic Surgery Additional Past Surgical History / Comment(s): Back surgery in his mid 50's, left hand surgery, spinal cord implant(non-functioning). Past Anesthesia/Blood Transfusion Reactions: No Reported Reaction Past Psychological History: Anxiety, Bipolar Smoking Status: Current every day smoker Past Alcohol Use History: Occasional Additional Past Alcohol Use History / Comment(s): Smoker of 1 ppd since 19 yrs of age. Past Drug Use History: None Reported - Past Family History Mother Family Medical History: Cancer Additional Family Medical History / Comment(s): "Had blood clot in brain and ". Medications and Allergies Home Medications Medication Instructions Recorded Confirmed Type Benztropine Mesylate [Cogentin] 0.5 mg PO HS 08/25/21 08/31/21 History Ginseng 100 mg PO DAILY 08/25/21 08/25/21 History HYDROcodone/APAP 10-325MG [Whitney 1 tab PO TID 08/25/21 08/25/21 History 10-325] Magnesium (Unknown Dose) 1 tab PO HS 08/25/21 08/25/21 History Multivitamins, Thera [Multivitamin 1 tab PO 1200 08/25/21 08/25/21 History (formulary)] OLANZapine [ZyPREXA] 15 mg PO HS 08/25/21 08/31/21 History Sheridan-3 Fatty Acids/Fish Oil [Fish 1 each PO DAILY 08/25/21 08/25/21 History Oil 1,000 mg Softgel] Potassium (Unknown Dose) 1 tab PO HS 08/25/21 08/25/21 History QUEtiapine [SEROquel] 100 mg PO HS 08/25/21 08/31/21 History lamoTRIgine [LaMICtal] 25 mg PO 1200 08/25/21 08/31/21 History lamoTRIgine [LaMICtal] 200 mg PO QAM 08/25/21 08/25/21 History Apixaban [Eliquis] 5 mg PO BID 30 Days #60 tab 09/02/21 Rx Allergies Allergy/AdvReac Type Severity Reaction Status Date / Time melatonin Allergy Chest Verified 08/31/21 05:59 Pressure Physical Exam Vitals: Vital Signs Temp Pulse Pulse Resp BP Pulse Ox 09/02/21 03:43 98.0 F 120 H 18 100/50 95 09/02/21 00:00 98.2 F 95 16 97/54 97 09/01/21 20:00 99.3 F 140 H 16 108/65 96 09/01/21 17:33 99.1 F 123 H 15 101/65 96 09/01/21 15:39 75 09/01/21 15:30 85 09/01/21 15:00 99.6 F 104 H 16 99/61 93 L 09/01/21 08:00 99.6 F 99 16 87/52 97 Intake and Output 09/01/21 09/02/21 09/02/21 22:59 06:59 14:59 Intake Total 1470 Output Total 875 810 Balance 595 -810 Intake: IV 20 Invasive Line 1 20 Intake, IV Titration 700 Amount Sodium Chloride 0.9% 1, 650 000 ml @ 75 mls/hr IV . [id number] [facility] Rx#:[id number] ceFAZolin 2 gm In Sodium 50 Chloride 0.9% 50 ml @ 100 mls/hr IVPB Q8HR [facility] Rx# :[id number] Oral 750 Output: Drainage 160 Back 160 Urine 875 650 Other: Voiding Method Urinal Urinal # Voids 0 Results 09/01/21 04:46 09/01/21 04:46 Cardiac Enzymes 09/01/21 Range/Units 04:46 AST 45 H (14-35) U/L CBC 09/01/21 Range/Units 04:46 WBC 14.47 H (4.50-10.00) X 10*3/uL RBC 2.63 L (4.40-5.60) X 10*6/uL Hgb 9.2 L (13.0-17.0) g/dL Hct 28.4 L (39.6-50.0) % Plt Count 153 (140-440) X 10*3/uL Comprehensive Metabolic Panel 09/01/21 Range/Units 04:46 Sodium 135 (135-145) mmol/L Potassium 4.1 (3.5-5.5) mmol/L Chloride 103 (96-109) mmol/L Carbon Dioxide 22.7 (20.0-27.5) mmol/L BUN 11.7 (9.0-27.0) mg/dL Creatinine 1.1 (0.6-1.5) mg/dL Glucose 100 (70-110) mg/dL Calcium 7.6 L (8.7-10.3) mg/dL AST 45 H (14-35) U/L ALT 19 (10-49) U/L Alkaline Phosphatase 64 (41-126) U/L Total Protein 4.5 L (6.2-8.2) g/dL Albumin 3.0 L (3.8-4.9) g/dL Current Medications Generic Name Dose Route Start Last Admin Trade Name Freq PRN Reason Stop Dose Admin Acetaminophen 650 mg 09/01/21 01:20 09/01/21 01:23 Acetaminophen Tab 325 Mg Tab PO 650 mg Q6HR PRN Administration Fever and/ or Pain Hydrocodone Bitart/Acetaminophen 1 each 08/31/21 14:54 09/02/21 00:12 Hydrocodone/Apap 7.5-325mg 1 Each Tab PO 1 each Q6HR PRN Administration Pain Albuterol/Ipratropium 3 ml 09/01/21 16:00 09/01/21 19:40 Ipratropium-Albuterol 3 Ml Neb INHALATION Not Given RT-QID [facility] Benztropine Mesylate 0.5 mg 08/31/21 21:00 09/01/21 22:21 Benztropine Mesylate 0.5 Mg Tab PO 0.5 mg HS [facility] Administration Cyclobenzaprine HCl 5 mg 08/31/21 14:48 Cyclobenzaprine 5 Mg Tab PO TID PRN Muscle Spasm Gabapentin 300 mg 08/31/21 16:00 09/01/21 22:21 Gabapentin 300 Mg Cap PO 300 mg TID [facility] Administration Hydromorphone HCl 0.5 mg 08/31/21 14:48 08/31/21 22:15 Hydromorphone 0.5 Mg/0.5 Ml Syringe IVP 0.5 mg Q3HR PRN Administration Pain Scale 4 - 6 Hydromorphone HCl 1 mg 08/31/21 14:55 09/01/21 20:30 Hydromorphone 1 Mg/Ml 1 Ml Syringe IVP 1 mg Q4HR PRN Administration Pain Lactated Ringer's 1,000 mls @ 20 mls/hr 08/31/21 05:45 09/02/21 03:16 Lactated Ringers IV Not Given .Q24H [facility] Cefazolin Sodium 2 gm/ Sodium 50 mls @ 100 mls/hr 08/31/21 16:00 09/02/21 00:12 Chloride IVPB 100 mls/hr Q8HR [facility] Administration Sodium Chloride 1,000 mls @ 75 mls/hr 08/31/21 15:00 09/02/21 06:34 Saline 0.9% IV Not Given .[id number] [facility] Diltiazem HCl 125 mg/ Sodium 125 mls @ 5 mls/hr 09/01/21 19:45 09/01/21 20:02 Chloride IV 5 mg/hr .Q24H [facility] 5 mls/hr Administration 5 MG/HR Lamotrigine 25 mg 09/02/21 12:00 Lamotrigine 25 Mg Tab PO 1200 [facility] Lamotrigine 200 mg 09/02/21 09:00 Lamotrigine 100 Mg Tab PO QAM [facility] Lorazepam 0.5 mg 08/31/21 16:50 08/31/21 16:56 Lorazepam 2 Mg/Ml Inj IV 0.5 mg Q6HR PRN Administration Anxiety Magnesium Hydroxide 2,400 mg 08/31/21 14:48 Magnesium Hydroxide 2,400 Mg/10 Ml Cup PO DAILY PRN Constipation Multivitamins 1 each 09/01/21 12:00 09/01/21 12:15 Multivitamins, Thera 1 Each Tab PO 1 each 1200 [facility] Administration Naloxone HCl 0.2 mg 08/31/21 15:41 Naloxone 0.4 Mg/Ml 1 Ml Vial IV Q2M PRN Opioid Reversal Nicotine 1 patch 08/31/21 21:00 09/01/21 08:56 Nicotine 21mg/24hr Patch TRANSDERM 1 patch DAILY [facility] Administration Olanzapine 15 mg 08/31/21 21:00 09/01/21 22:22 Olanzapine 7.5 Mg Tab PO 15 mg HS [facility] Administration Ondansetron HCl 4 mg 08/31/21 14:48 Ondansetron 4 Mg/2 Ml Vial IVP Q8HR PRN Nausea And Vomiting Polyethylene Glycol 17 gm 08/31/21 21:00 09/01/21 22:22 Polyethylene Glycol 3350 17 Gm Powd.Pack PO 17 gm HS [facility] Administration Quetiapine Fumarate 100 mg 08/31/21 21:00 09/01/21 22:21 Quetiapine 100 Mg Tab PO 100 mg HS [facility] Administration Senna/Docusate Sodium 2 each 08/31/21 14:48 Sennosides-Docusate Sodium 1 Each Tab PO DAILY PRN Constipation Intake and Output 09/01/21 09/02/21 09/02/21 22:59 06:59 14:59 Intake Total 1470 Output Total 875 810 Balance 595 -810 Intake: IV 20 Invasive Line 1 20 Intake, IV Titration 700 Amount Sodium Chloride 0.9% 1, 650 000 ml @ 75 mls/hr IV . [id number] [facility] Rx#:[id number] ceFAZolin 2 gm In Sodium 50 Chloride 0.9% 50 ml @ 100 mls/hr IVPB Q8HR [facility] Rx# :[id number] Oral 750 Output: Drainage 160 Back 160 Urine 875 650 Other: Voiding Method Urinal Urinal # Voids 0 09/01/21 04:46 09/01/21 04:46
[2021-09-02] MEDS: MULTIVITAMINS, THERA 1 EACH TAB PO SCH (12:32)
[2021-09-02] MEDS: lamoTRIgine 25 MG TAB PO SCH (12:32)
--- NOTE | 2021-09-02 17:39 | ECHOF ---
Referral Reason:new onset afib MEASUREMENTS -------- HEIGHT: 180.3 cm WEIGHT: 76.7 kg BP: 100/58 RVIDd: 3.0 cm (< 3.3) IVSd: 1.1 cm (0.6 - 1.1) LVIDd: 4.1 cm (3.9 - 5.3) LVPWd: 1.0 cm (0.6 - 1.1) IVSs: 1.3 cm LVIDs: 2.4 cm LVPWs: 1.4 cm LAESV Index (A-L): 27.56 ml/m Ao Diam: 3.0 cm (2.0 - 3.7) AV Cusp: 2.1 cm (1.5 - 2.6) LA Diam: 3.6 cm (2.7 - 3.8) RAP: 5.00 mmHg RVSP: 27.81 mmHg FINDINGS -------- Atrial fibrillation. This was a technically adequate study. The left ventricular size is normal. There is borderline concentric left ventricular hypertrophy. Overall left ventricular systolic function is normal with, an EF between 55 - 60 %. The right ventricle is normal in size. Normal LA size by volume 22+/-6 ml/m2. The right atrial size is normal. Interatrial and interventricular septum intact. The aortic valve is trileaflet, and appears structurally normal. No aortic stenosis or regurgitation. The mitral valve is normal. There is trace mitral regurgitation. The tricuspid valve appears structurally normal. Mild tricuspid regurgitation present. Right vent ricular systolic pressure is normal at < 35 mmHg. The right ventricular systolic pressure, as measu red by Doppler, is 27.81mmHg. There is no pulmonic regurgitation present. The aortic root size is normal. IVC Not well visulized. There is no pericardial effusion. CONCLUSIONS -------- 1. Atrial fibrillation. 2. There is borderline concentric left ventricular hypertrophy. 3. Overall left ventricular systolic function is normal with, an EF between 55 - 60 %. 4. Normal LA size by volume 22+/-6 ml/m2. 5. The aortic valve is trileaflet, and appears structurally normal. No aortic stenosis or regurgitati on. 6. There is trace mitral regurgitation. 7. Mild tricuspid regurgitation present. DATA SECURITY ANALYST: Kellee Rosales [facility]
[2021-09-02] MEDS: HYDROcodone/APAP 7.5-325MG 1 EACH TAB PO SCH (18:54)
[2021-09-02] MEDS: OLANZapine 7.5 MG TAB PO SCH (22:13)
[2021-09-02] MEDS: CYCLOBENZAPRINE 5 MG TAB PO SCH (22:14)
[2021-09-02] MEDS: BENZTROPINE MESYLATE 0.5 MG TAB PO SCH (22:14)
[2021-09-02] MEDS: polyethylene glycoL 3350 17 GM POWD.PACK PO SCH (22:14)
[2021-09-02] MEDS: AMIODARONE 450 MG in DEXTROSE 5% IN WATER 250 ML IV SCH ×2 (22:14)
[2021-09-02] MEDS: QUEtiapine 100 MG TAB PO SCH (22:14)
[2021-09-03] MEDS: HYDROmorphone 1 MG/ML 1 ML SYRINGE IVP PRN (03:16)
[2021-09-03] MEDS: HYDROcodone/APAP 7.5-325MG 1 EACH TAB PO SCH ×4 (06:03→18:28)
--- NOTE | 2021-09-03 07:49 | P.PN ---
Subjective Progress Note Date: 09/03/21 Principal diagnosis: Status post revision T10 to pelvis decompression and fusion with bilateral open SI fusion Patient seen and examined today, resting in bed. Mr. Díaz states he felt that he slept better last night and that his pain is more controlled. He states that he has not been out of bed due to all of his lines running to him. Instructed patient that he needs to work with physical therapy today. I had Mr. Díaz roll and sit at the edge of the bed to assess his surgical incision. Dressing is clean dry and intact. Hemovac is still present to the right of the surgical incision. Output of the drain has been 0 mL overnight. Patient is to start eliquis this morning at 9 AM. If drain remains at a low output we will discontinue drain this afternoon. Patient tolerated activity very well. He states he was surprised on how well he did. Patient denies any numbness tingling to lower extremities. Patient has urinating on his own with use of the urinal. No bowel movement at this time the patient is passing gas. Denies fever/chills, nausea/vomiting, or chest pain. Objective - Vital Signs Vital signs: Vital Signs Temp 98.1 F 09/03/21 04:00 Pulse 130 H 09/03/21 04:00 Resp 18 09/03/21 04:00 BP 107/65 09/03/21 04:00 Pulse Ox 93 L 09/03/21 04:00 Intake & Output 09/02/21 09/03/21 09/03/21 18:59 06:59 18:59 Intake Total 1000.083 Output Total 1183 300 875 Balance -182.917 -300 -875 Intake: Intake, IV Titration 162.083 Amount Diltiazem 125 mg In 62.083 Sodium Chloride 0.9% 100 ml @ 5 MG/HR 5 mls/hr IV .Q24H [facility] Rx#:[id number] ceFAZolin 2 gm In Sodium 100 Chloride 0.9% 50 ml @ 100 mls/hr IVPB Q8HR [facility] Rx# :[id number] Oral 838 Output: Drainage 8 0 Back 8 0 Urine 1175 300 875 Other: Voiding Method Urinal Urinal # Voids 2 - Exam Physical Examination Physical examination recalled from yesterday, any changes have been noted below: General: The patient is awake and alert, in no acute distress Skin: Skin is warm and dry with no obvious rashes or lesions. Hairy patches absent, no dorsal skin dimples, no cafe au lait spots. There is a midline surgical incision present to the thoracic and lumbar region, Hemovac present to the right of the surgical incision. Eye: Pupils are equal, round and reactive to light, extra-ocular movements are intact; there is normal conjunctiva bilaterally. Neck: The neck is supple, there is no tenderness and ROM intact. Cardiovascular: There is a regular rate and rhythm. No murmur, rub or gallop is appreciated. Respiratory: Lungs are clear to auscultation, respirations are non-labored, breath sounds are equal. Gastrointestinal: Soft, non-distended, non-tender abdomen . Back: There is slight tenderness to palpation in the paralumbar, parathoracic region. Pt denies any buttock pain or tenderness. There is no obvious deformity . Musculoskeletal: ROM limited secondary to pain and stiffness from surgical pr ocedure. Shoulder abduction 5/5, elbow flexors 5/5, wrist dorsiflexors 5/5. finger abductor 5/5, flat locker 5/5, hip flexor 4/5, knee flexor 4/5, ankle dorsiflexor 4/5, ankle plantarflexion 4/5 and extensor hallucis 4/5. Neurological: CN 2-12 intact. There are no obvious motor or sensory deficits. Movement and coordination equal and intact. Sensory exam to light touch intact C5-T1 and intact from L2-S1. Reflexes 2/4 in bilateral upper and lower extremities. Negative Hoffmans, babinski, and clonus signs. Psychiatric: Cooperative, appropriate mood & affect, normal judgment. - Labs CBC & Chem 7: 09/01/21 04:46 09/01/21 04:46 Assessment and Plan Assessment: Postop day 3: Status post revision T10 to pelvis decompression and fusion with bilateral open SI fusion Plan: Plan: -Appreciate service loss control consultant and team management. -Activity: Ambulate QID, OOB all meals, up and about, limit lifting bending twisting to less than 5 lbs. Use walker or cane if needed for stability. -Daily PT/OT, increase ambulation strength and balance. -TLSO Brace when up and about, not needed in bed or chair -Pain control: Adequate at this time, medications adjusted to scheduled. -Meds: reviewed -GI ppx: senna, Miralax -DVT PPX: eliquis -Hygiene: Shower today. Maintain dressing clean and dry. Meticulous cleaning after BMs away from the incision site -Drains: Maintain for now at gravity, possibly discontinue later this afternoon 09/03/21. -Encourage IS 10x/hr -Dispo: Anticipate discharge home in the next 24-48hrs with homecare. *I reviewed and discussed this case with my attending Dr. Santiago, whom has reviewed this chart and films and is in agreement with assessment and plan of care as outlined above. I have personally seen and examined the patient, performed the documentation and the assessment and plan as written. Number of minutes spent on the visit: 20m
[2021-09-03] MEDS: IPRATROPIUM-ALBUTEROL 3 ML NEB INHALATION SCH ×4 (08:14→19:16)
[2021-09-03] MEDS: GABAPENTIN 300 MG CAP PO SCH ×3 (08:49→21:34)
[2021-09-03] MEDS: lamoTRIgine 100 MG TAB PO SCH (08:49)
[2021-09-03] MEDS: CYCLOBENZAPRINE 5 MG TAB PO SCH ×3 (08:49→21:36)
[2021-09-03] MEDS: APIXABAN 5 MG TAB PO SCH ×2 (08:49→21:36)
[2021-09-03] MEDS: NICOTINE 21MG/24HR PATCH TRANSDERM SCH (08:49)
[2021-09-03] MEDS: HYDROmorphone 0.5 MG/0.5 ML SYRINGE IVP PRN (08:50)
[2021-09-03 09:23] LABS: Basophils % (A) 0 %; Eosinophils % (A) 0 %; HCT 26.4 % (39.0-53.0); HGB 8.7 gm/dL (13.0-17.5); Lymphocytes # (A) 1.1 k/uL (1.0-4.8); Lymphocytes % (A) 10 %; MCH 36.5 pg (25.0-35.0); MCHC 33.1 g/dL (31.0-37.0); MCV 110.3 fL (80.0-100.0); Macrocytosis Marked; Mean Platelet Volume 8.1; Monocytes # (A) 0.5 k/uL (0-1.0); Monocytes % (A) 4 %; Neutrophils # (A) 9.5 k/uL (1.3-7.7); Neutrophils % (A) 84 %; Platelet Count 169 k/uL (150-450); RBC 2.39 m/uL (4.30-5.90); WBC 11.4 k/uL (3.8-10.6)
[2021-09-03 09:43] LABS: ALT 19 U/L (4-49); AST 71 U/L (17-59); African American GFR (CKD) >90 (>60 ml/min/1.73 sqM); Albumin 2.5 g/dL (3.5-5.0); Alkaline Phosphatase 64 U/L (38-126); Anion Gap 6 mmol/L; Blood Urea Nitrogen 7 mg/dL (9-20); Calcium 8.2 mg/dL (8.4-10.2); Carbon Dioxide 25 mmol/L (22-30); Chloride 103 mmol/L (98-107); Glucose 117 mg/dL (74-99); Non-African American GFR(CKD) >90 (>60 ml/min/1.73 sqM); Potassium 3.9 mmol/L (3.5-5.1); Sodium 134 mmol/L (137-145); Total Bilirubin 0.9 mg/dL (0.2-1.3)
[2021-09-03] MEDS: lamoTRIgine 25 MG TAB PO SCH (11:47)
[2021-09-03] MEDS: MULTIVITAMINS, THERA 1 EACH TAB PO SCH (11:48)
[2021-09-03] MEDS: AMIODARONE 200 MG TAB PO SCH ×3 (11:48→21:47)
--- NOTE | 2021-09-03 12:57 | P.PN ---
Subjective This is a pleasant 65-year-old male past medical history significant for anxiety, bilateral lower extremity radiculopathy s/p prior surgery. 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 We have been asked to see in consultation for new onset atrial fibrillation with RVR. Patient presents to the hospital for a planned procedure. On 08/31/21, He underwent revision T10 to pelvis decompression and fusion with bilateral open SI fusion by Ortho. Patient seen and examined at bedside, he states his lower back pain is not controlled. He denies any palpitations, dizziness, chest pain, shortness of breath, lightheadedness. He denies history of CAD, [place], Stroke, Diabetes, hypertension, high cholesterol, or atrial fibrillation. On 09/01/21, patient was noted to be tachycardic, found to be in atrial flutter with HR 150s-160s. Patient did have symptoms of lightheadedness only. He was transferred to . Started on Cardizem drip. Telemetry reviewed, patient has been in and out of atrial fibrillation and flutter with RVR. HR 140s this morning, Cardizem drip increased to 10mg/hr and patient converted appeared to be in atrial flutter with controlled ventricular rates 09/03/2021 Patient seen and examined at bedside, no acute distress. He continues to have lower back pain. Telemetry reviewed, patient in atrial fibrillation with co ntrolled ventricular rates 90s-100s, occasionally does get tachycardic up to the 120s. TSH was within normal limits. Echocardiogram revealed an EF of 5560% He's currently maintained on Eliquis 5 mg twice a day, IV amiodarone PHYSICAL EXAMINATION Vitals blood pressure 100/58, heart rate 135, afebrile, saturations 97% on 3 L nasal cannula CONSTITUTIONAL: No apparent distress. HEENT: Neck Supple. No JVD. CHEST EXAMINATION: Lungs are clear to auscultation. No chest wall tenderness is noted on palpation or with deep breathing. HEART EXAMINATION: Irregular rate and rhythm. S1, S2 heard. No murmurs, gallops or rub. ABDOMEN: Soft, nontender. Positive bowel sounds. EXTREMITIES: 2+ peripheral pulses, no lower extremity edema and no calf tenderness. SKIN: Warm, dry NEUROLOGIC EXAMINATION: Patient is awake, alert and oriented x3. ASSESSMENT Paroxysmal atrial fibrillation, and atypical flutter with RVR, new onset -[id number] score 0, however, his this year will put him at 1 Status post revision T10 to pelvis decompression and fusion with bilateral open SI fusion on 08/31. PLAN Discontinue IV amiodarone PO amiodarone 200mg TID 7 days, then 200mg BID for 7 days, then 200mg daily thereafter Per Viki MITCHELL ok to start anticoagulation, Started Eliquis 5mg BID Per case management Eliquis is covered. Continue cardiac telemetry Further recommendations based on clinical course Nurse practitioner note has been reviewed by physician. Signing provider agrees with the documented findings, assessment, and plan of care. Objective - Vital Signs Vital signs: Vital Signs Temp 98.4 F 09/03/21 11:45 Pulse 112 H 09/03/21 12:10 Resp 18 09/03/21 11:45 BP 101/69 09/03/21 11:45 Pulse Ox 98 09/03/21 11:45 Intake & Output 09/02/21 09/03/21 09/03/21 18:59 06:59 18:59 Intake Total 1000.083 Output Total 1183 300 875 Balance -182.917 -300 -875 Intake: Intake, IV Titration 162.083 Amount Diltiazem 125 mg In 62.083 Sodium Chloride 0.9% 100 ml @ 5 MG/HR 5 mls/hr IV .Q24H [facility] Rx#:[id number] ceFAZolin 2 gm In Sodium 100 Chloride 0.9% 50 ml @ 100 mls/hr IVPB Q8HR [facility] Rx# :[id number] Oral 838 Output: Drainage 8 0 0 Back 8 0 0 Urine 1175 300 875 Other: Voiding Method Urinal Urinal Urinal # Voids 2 - Labs CBC & Chem 7: 09/03/21 08:44 09/03/21 08:44 Labs: Abnormal Lab Results - Last 24 Hours (Table) 09/03/21 09/03/21 Range/Units 08:44 08:44 WBC 11.4 H (3.8-10.6) k/uL RBC 2.39 L (4.30-5.90) m/uL Hgb 8.7 L (13.0-17.5) gm/dL Hct 26.4 L (39.0-53.0) % MCV 110.3 H (80.0-100.0) fL MCH 36.5 H (25.0-35.0) pg Neutrophils # 9.5 H (1.3-7.7) k/uL Macrocytosis Marked A Sodium 134 L (137-145) mmol/L BUN 7 L (9-20) mg/dL Glucose 117 H (74-99) mg/dL Calcium 8.2 L (8.4-10.2) mg/dL AST 71 H (17-59) U/L Total Protein 5.0 L (6.3-8.2) g/dL Albumin 2.5 L (3.5-5.0) g/dL
--- NOTE | 2021-09-03 16:04 | PN ---
PROGRESS NOTE This 65-year-old white male is status post lumbar surgery, doing much better. He says his pain is 8 to 10 out of 10 still. Pulse rate is in low 100s. He was started on amiodarone and due to atrial fibrillation with rapid ventricular response. He is saturating 98 on room air. Blood pressure 101 over 60s. Cardiovascular irregularly irregular rhythm. Lungs with rales at the bases. Hematology negative Homans. Psych fair mood and affect. Hemoglobin is 9.2, white count 14.4, calcium 7.6. AST is 45, ALT 19, total albumin of 3 . ASSESSMENT: 1. Status post lumbar laminectomy. 2. Atrial fibrillation with rapid ventricular response. 3. Chronic obstructive pulmonary disease. 4. Nicotine addiction. PLAN: Continue treatment for atrial fibrillation with amiodarone. His pain is better controlled. Fine-tune and COPD. Physical therapy. Possibly go home soon. Wait for cardiology recommendations. MMODL / IJN: [id number] /
[2021-09-03] MEDS: AMIODARONE 450 MG in DEXTROSE 5% IN WATER 250 ML IV SCH ×2 (18:55)
[2021-09-03] MEDS: LACTATED RINGERS 1,000 ML IV SCH (20:37)
[2021-09-03] MEDS: SODIUM CHLORIDE 0.9% 1,000 ML IV SCH ×2 (20:37→21:51)
[2021-09-03] MEDS: polyethylene glycoL 3350 17 GM POWD.PACK PO SCH (21:33)
[2021-09-03] MEDS: BENZTROPINE MESYLATE 0.5 MG TAB PO SCH (21:34)
[2021-09-03] MEDS: QUEtiapine 100 MG TAB PO SCH (21:35)
[2021-09-03] MEDS: OLANZapine 7.5 MG TAB PO SCH (21:35)
[2021-09-03] MEDS: METOPROLOL TARTRATE 12.5 MG TAB PO SCH (21:35)
[2021-09-04] MEDS: HYDROcodone/APAP 7.5-325MG 1 EACH TAB PO SCH ×5 (02:06→23:57)
[2021-09-04] MEDS: LACTATED RINGERS 1,000 ML IV SCH (08:04)
[2021-09-04] MEDS: NICOTINE 21MG/24HR PATCH TRANSDERM SCH (08:39)
[2021-09-04] MEDS: CYCLOBENZAPRINE 5 MG TAB PO SCH ×3 (08:40→20:37)
[2021-09-04] MEDS: lamoTRIgine 100 MG TAB PO SCH (08:40)
[2021-09-04] MEDS: METOPROLOL TARTRATE 12.5 MG TAB PO SCH ×2 (08:40→20:36)
[2021-09-04] MEDS: GABAPENTIN 300 MG CAP PO SCH ×3 (08:40→20:36)
[2021-09-04] MEDS: APIXABAN 5 MG TAB PO SCH ×2 (08:40→20:37)
[2021-09-04] MEDS: AMIODARONE 200 MG TAB PO SCH ×3 (08:40→20:37)
[2021-09-04] MEDS: IPRATROPIUM-ALBUTEROL 3 ML NEB INHALATION SCH ×4 (09:09→19:39)
[2021-09-04 09:16] LABS: HCT 25.5 % (39.0-53.0); HGB 8.2 gm/dL (13.0-17.5); MCH 35.4 pg (25.0-35.0); MCHC 32.1 g/dL (31.0-37.0); MCV 110.5 fL (80.0-100.0); Macrocytosis Marked; Platelet Count 198 k/uL (150-450); RBC 2.31 m/uL (4.30-5.90); RDW 13.5 % (11.5-15.5); WBC 8.2 k/uL (3.8-10.6)
--- NOTE | 2021-09-04 12:08 | P.PN ---
Progress Note - Text Progress Note Date: 09/04/21 Diagnosis: 1. 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 LE weakness 4. Neurogenic claudication 5. Mechanical back pain Subjective: Patient was seen at bedside this morning resting comfortable lying in the left lateral recumbent position. Patient says therapy did come by this morning, however, patient says he is in too much pain to get up with therapy. Patient says physical therapy is coming by later today, and patient said he is willing to really get up later today with therapy. Patient says he is having pain and currently rates as 7/10. Patient says the pain is located along the incision on the lower back and describes as muscle aches. Patient denies any radiation pain down the legs. Patient does have a drain in place as well as opt foam dressing over incision on spine. Patient denies chest pain, fever, shortness breath, nausea, vomiting, change of vision, loss of bowel/bladder control. Objective: Opti foam dressing was removed from spine. [place] are well aligned in good place. No drainage present from incision. New opti-Foam dressing was placed over incision. Drain was pulled. 4 x 4 and Tegaderm was placed over drain in cision. Patient does have some mild to moderate tenderness during palpation along the lumbar spine. Patient has good range of motion bilateral upper extremities. Motor exam 4/5 in resisted hip flexion/extension, knee flexion/extension, ankle dorsi/plantar flexion in bilateral lower extremities. 5/5 in all other major motor groups. Sensation is equal, symmetric in upper and lower extremities bilaterally. Radial pulses intact, 2+ bilaterally. Negative Homans bilaterally. Assessment: 1. 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 LE weakness 4. Neurogenic claudication 5. Mechanical back pain Postoperative day 4 status post revision decompression fusion [id number] and SI joint fusion Plan: 1. S/P [id number] PLIF with hardware failure; proximal junctional failure with kyphotic deformity due to failure L2-3 and hardware failure L1-2; lower extre mity weaknes; neurogenic claudication; mechanical back pain - surgery performed 08/31/2021 - revision decompression fusion [id number] and SI joint fusion. Patient stable at bedside this morning. New optifoam dressing was placed and drain was pulled. plan discharge home with health services tomorrow, 09/05/2021 versus 09/06/2021 2. Appreciate medical management 3. Pain management - [place]; Flexeril; gabapentin; Tylenol 4. DVT prophylaxis - Eliquis 5. GI prophylaxis - senna; MiraLAX 6. Encourage incentive spirometer use 7. PT/OT - TLSO brace while up and about. Braces not need well in chair/while lying in bed. 8. Discharge planning - plan discharge home with health services tomorrow, 09/05/2021 versus 09/06/2021
[2021-09-04] MEDS: SODIUM CHLORIDE 0.9% 1,000 ML IV SCH (12:21)
[2021-09-04] MEDS: MULTIVITAMINS, THERA 1 EACH TAB PO SCH (12:29)
[2021-09-04] MEDS: lamoTRIgine 25 MG TAB PO SCH (12:29)
--- NOTE | 2021-09-04 14:30 | PN ---
PROGRESS NOTE This 65-year-old white male is status post lumbar surgery repair. He has intermittent atrial fibrillation. He has been on Eliquis now 5 mg b.i.d. as well as amiodarone. His blood pressure is still in the 90s systolic, but he shows no signs of dizziness. He has an LSO brace. Going to increase ambulation today and possibly be discharged home tomorrow or the next day on Eliquis and amiodarone as well as his home medications. Prognosis guarded. Condition stable. Lungs are clear. Cardiovascular irregularly irregular rhythm. GI soft. Extremities no edema. Continue current treatments as mentioned above, as he appears to be stable medically at this point. MMODL / IJN: [id number] /
--- NOTE | 2021-09-04 14:38 | P.PN ---
Subjective Progress Note Date: 09/04/21 This is a pleasant 65-year-old male past medical history significant for anxiety, bilateral lower extremity radiculopathy s/p prior surgery. 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 We have been asked to see in consultation for new onset atrial fibrillation with RVR. Patient presents to the hospital for a planned procedure. On 08/31/21, He underwent revision T10 to pelvis decompression and fusion with bilateral open SI fusion by Ortho. Patient seen and examined at bedside, he states his lower back pain is not controlled. He denies any palpitations, dizziness, chest pain, shortness of breath, lightheadedness. He denies history of CAD, MS, Stroke, Diabetes, hypertension, high cholesterol, or atrial fibrillation. On 09/01/21, patient was noted to be tachycardic, found to be in atrial flutter with HR 150s-160s. Patient did have symptoms of lightheadedness only. He was transferred to . Started on Cardizem drip. Telemetry reviewed, patient has been in and out of atrial fibrillation and flutter with RVR. HR 140s this morning, Cardizem drip increased to 10mg/hr and patient converted appeared to be in atrial flutter with controlled ventricular rates 09/03/2021 Patient seen and examined at bedside, no acute distress. He continues to have lower back pain. Telemetry reviewed, patient in atrial fibrillation with controlled ventricular rates 90s-100s, occasionally does get tachycardic up to the 120s. TSH was within normal limits. Echocardiogram revealed an EF of 5560% He's currently maintained on Eliquis 5 mg twice a day, IV amiodarone 09/04/2021 Patient denies any new concerns. No chest pain or shortness of breath. No palpitations. No lightheadedness or dizziness. He states that he is scheduled for discharge tomorrow. Patient is converted to sinus rhythm with heart rate in the 80s. He is continued on amiodarone 200 mg 3 times daily which will be tapered as an outpatient, maintained on eliquis 5 mg twice daily and Lopressor 12.5 mg twice daily. PHYSICAL EXAMINATION CONSTITUTIONAL: No apparent distress. HEENT: Neck Supple. No JVD. CHEST EXAMINATION: Lungs are clear to auscultation. No chest wall tenderness is noted on palpation or with deep breathing. HEART EXAMINATION: Irregular rate and rhythm. S1, S2 heard. No murmurs, gallops or rub. ABDOMEN: Soft, nontender. Positive bowel sounds. EXTREMITIES: 2+ peripheral pulses, no lower extremity edema and no calf tenderness. SKIN: Warm, dry NEUROLOGIC EXAMINATION: Patient is awake, alert and oriented x3. ASSESSMENT Paroxysmal atrial fibrillation, and atypical flutter with RVR, new onset -[id number] score 0, however, his this year will put him at 1 Status post revision T10 to pelvis decompression and fusion with bilateral open SI fusion on 08/31. PLAN Continue PO amiodarone 200mg TID 7 days, then 200mg BID for 7 days, then 200mg daily thereafter Continue Eliquis 5mg BID Per case management Eliquis is covered. Continue cardiac telemetry Further recommendations based on clinical course Nurse practitioner note has been reviewed by physician. Signing provider agrees with the documented findings, assessment, and plan of care. Objective - Vital Signs Vital signs: Vital Signs Temp 98.4 F 09/04/21 05:00 Pulse 87 09/04/21 09:18 Resp 16 09/04/21 08:00 BP 108/72 09/04/21 08:00 Pulse Ox 98 09/04/21 09:12 Intake & Output 09/03/21 09/04/21 09/04/21 18:59 06:59 18:59 Intake Total 118 240 Output Total 1500 300 0 Balance -1382 -300 240 Intake: Oral 118 240 Output: Drainage 0 0 0 Back 0 0 0 Urine 1500 300 Other: Voiding Method Urinal Urinal Diaper # Voids 2 1 - Labs CBC & Chem 7: 09/04/21 08:58 09/03/21 08:44 Labs: Abnormal Lab Results - Last 24 Hours (Table) 09/03/21 09/04/21 Range/Units 08:44 08:58 RBC 2.31 L (4.30-5.90) m/uL Hgb 8.2 L (13.0-17.5) gm/dL Hct 25.5 L (39.0-53.0) % MCV 110.5 H (80.0-100.0) fL MCH 35.4 H (25.0-35.0) pg Neutrophils # 9.5 H (1.3-7.7) k/uL Macrocytosis Marked A
[2021-09-04] MEDS: QUEtiapine 100 MG TAB PO SCH (20:36)
[2021-09-04] MEDS: OLANZapine 7.5 MG TAB PO SCH (20:36)
[2021-09-04] MEDS: polyethylene glycoL 3350 17 GM POWD.PACK PO SCH (20:36)
[2021-09-04] MEDS: BENZTROPINE MESYLATE 0.5 MG TAB PO SCH (20:36)
[2021-09-05] MEDS: HYDROcodone/APAP 7.5-325MG 1 EACH TAB PO SCH ×4 (03:52→23:41)
[2021-09-05] MEDS: SODIUM CHLORIDE 0.9% 1,000 ML IV SCH ×2 (03:56→16:09)
[2021-09-05] MEDS: LACTATED RINGERS 1,000 ML IV SCH (04:54)
[2021-09-05] MEDS: IPRATROPIUM-ALBUTEROL 3 ML NEB INHALATION SCH ×4 (08:08→19:08)
[2021-09-05] MEDS: METOPROLOL TARTRATE 12.5 MG TAB PO SCH ×2 (08:27→21:23)
[2021-09-05] MEDS: CYCLOBENZAPRINE 5 MG TAB PO SCH ×3 (08:27→21:23)
[2021-09-05] MEDS: lamoTRIgine 100 MG TAB PO SCH (08:27)
[2021-09-05] MEDS: AMIODARONE 200 MG TAB PO SCH ×3 (08:27→21:23)
[2021-09-05] MEDS: APIXABAN 5 MG TAB PO SCH ×2 (08:27→21:23)
[2021-09-05] MEDS: NICOTINE 21MG/24HR PATCH TRANSDERM SCH (08:28)
[2021-09-05] MEDS: GABAPENTIN 300 MG CAP PO SCH ×3 (08:28→21:24)
--- NOTE | 2021-09-05 10:01 | P.PN ---
Progress Note - Text Progress Note Date: 09/05/21 Diagnosis: 1. 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 LE weakness 4. Neurogenic claudication 5. Mechanical back pain Subjective: Patient was seen at bedside this morning resting comfortably lying in semirecumbent position. During the encounter I was in the room when physical therapy assisted the patient while the patient got up with the TLSO brace and used a walker to walk from the bed to the couch and back a couple times. The patient did do well with physical therapy. However, it was evident patient does need to use a walker to aid in ambulation to help steady him. Patient says he does not have a walker at home. Patient says he is feeling much better than he was yesterday, however, he says he is still having some muscle aches in his low er back. Patient denies chest pain, fever, shortness of breath, nausea, vomiting, change in vision, loss of bowel/bladder control. Objective: Opti foam dressing was removed from spine. [place] are well aligned in good place. Minimal serosanguineous drainage present on optifoam. New opti-Foam dressing was placed over incision. Patient does have some mild to moderate tenderness during palpation along the lumbar spine. Patient has good range of motion bilateral upper extremities. Motor exam 4/5 in resisted hip flexion/extension, knee flexion/extension, ankle dorsi/plantar flexion in bila teral lower extremities. 5/5 in all other major motor groups. Sensation is equal, symmetric in upper and lower extremities bilaterally. Radial pulses intact, 2+ bilaterally. Negative Homans bilaterally. Assessment: 1. 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 LE weakness 4. Neurogenic claudication 5. Mechanical back pain Postoperative day 5 status post revision decompression fusion [id number] and SI joint fusion Plan: 1. S/P [id number] PLIF with hardware failure; proximal junctional failure with kyphotic deformity due to failure L2-3 and hardware failure L1-2; lower extremity weaknes; neurogenic claudication; mechanical back pain - surgery perfo rmed 08/31/2021 - revision decompression fusion [id number] and SI joint fusion. Patient stable at bedside this morning. Prescription for walker with wheels was signed. New optifoam dressing was placed over incision. plan discharge home with health services tomorrow, 09/06/2021 2. Appreciate medical management 3. Pain management - [place]; Flexeril; gabapentin; Tylenol 4. DVT prophylaxis - Eliquis 5. GI prophylaxis - senna; MiraLAX 6. Encourage incentive spirometer use 7. PT/OT - TLSO brace while up and about. Brace not need well in chair/while lying in bed. 8. Discharge planning - plan discharge home with health services tomorrow 09/06/2021
--- NOTE | 2021-09-05 12:23 | P.PN ---
Subjective Progress Note Date: 09/05/21 This is a pleasant 65-year-old male past medical history significant for anxiety, bilateral lower extremity radiculopathy s/p prior surgery. 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 We have been asked to see in consultation for new onset atrial fibrillation with RVR. Patient presents to the hospital for a planned procedure. On 08/31/21, He underwent revision T10 to pelvis decompression and fusion with bilateral open SI fusion by Ortho. Patient seen and examined at bedside, he states his lower back pain is not controlled. He denies any palpitations, dizziness, chest pain, shortness of breath, lightheadedness. He denies history of CAD, [place], Stroke, Diabetes, hypertension, high cholesterol, or atrial fibrillation. On 09/01/21, patient was noted to be tachycardic, found to be in atrial flutter with HR 150s-160s. Patient did have symptoms of lightheadedness only. He was transferred to . Started on Cardizem drip. Telemetry reviewed, patient has been in and out of atrial fibrillation and flutter with RVR. HR 140s this morning, Cardizem drip increased to 10mg/hr and patient converted appeared to be in atrial flutter with controlled ventricular rates 09/03/2021 Patient seen and examined at bedside, no acute distress. He continues to have lower back pain. Telemetry reviewed, patient in atrial fibrillation with controlled ventricular rates 90s-100s, occasionally does get tachycardic up to the 120s. TSH was within normal limits. Echocardiogram revealed an EF of 5560% He's currently maintained on Eliquis 5 mg twice a day, IV amiodarone 09/04/2021 Patient denies any new concerns. No chest pain or shortness of breath. No palpitations. No lightheadedness or dizziness. He states that he is scheduled for discharge tomorrow. Patient is converted to sinus rhythm with heart rate in the 80s. He is continued on amiodarone 200 mg 3 times daily which will be tapered as an outpatient, maintained on eliquis 5 mg twice daily and Lopressor 12.5 mg twice daily. 09/05/2021 Patient remains in a sinus rhythm . He denies any chest pain, palpitations. No change in medications. Hgb 8.2. Orthopedics is planning on discharge tomorrow. PHYSICAL EXAMINATION CONSTITUTIONAL: No apparent distress. HEENT: Neck Supple. No JVD. CHEST EXAMINATION: Lungs are clear to auscultation. No chest wall tenderness is noted on palpation or with deep breathing. HEART EXAMINATION: Irregular rate and rhythm. S1, S2 heard. No murmurs, gallops or rub. ABDOMEN: Soft, nontender. Positive bowel sounds. EXTREMITIES: 2+ peripheral pulses, no lower extremity edema and no calf tenderness. SKIN: Warm, dry NEUROLOGIC EXAMINATION: Patient is awake, alert and oriented x3. ASSESSMENT Paroxysmal atrial fibrillation, and atypical flutter with RVR, new onset -[id number] score 0, however, his this year will put him at 1 Status post revision T10 to pelvis decompression and fusion with bilateral open SI fusion on 08/31. PLAN Continue PO amiodarone 200mg TID 7 days, then 200mg BID for 7 days, then 200mg daily thereafter Continue Eliquis 5mg BID Per case management Eliquis is covered. Continue cardiac telemetry Further recommendations based on clinical course Nurse practitioner note has been reviewed by physician. Signing provider agrees with the documented findings, assessment, and plan of care. Objective - Vital Signs Vital signs: Vital Signs Temp 98.8 F 09/05/21 04:00 Pulse 86 09/05/21 08:08 Resp 16 09/05/21 07:55 BP 99/51 09/05/21 07:55 Pulse Ox 93 L 09/05/21 07:55 Intake & Output 09/04/21 09/05/21 09/05/21 18:59 06:59 18:59 Intake Total 1165 240 Output Total 350 600 Balance 815 -600 240 Intake: IV 825 0.9 825 Intake, IV Titration 100 Amount ceFAZolin 2 gm In Sodium 100 Chloride 0.9% 50 ml @ 100 mls/hr IVPB Q8HR [facility] Rx# :[id number] Oral 240 240 Output: Drainage 0 Back 0 Urine 350 600 Other: Voiding Method Urinal Diaper - Labs CBC & Chem 7: 09/04/21 08:58 09/03/21 08:44
[2021-09-05] MEDS: lamoTRIgine 25 MG TAB PO SCH (12:31)
[2021-09-05] MEDS: MULTIVITAMINS, THERA 1 EACH TAB PO SCH (12:31)
--- NOTE | 2021-09-05 12:48 | PN ---
PROGRESS NOTE This 65-year-old white male is status post L2 pelvic PLIF with hardware failure, status post lumbar surgery, doing well. He has been up and out of bed. He has atrial fibrillation with rapid ventricular response, on Eliquis and beta blockers and amiodarone. He appears to be stable with his blood pressure 110/80. Cardiovascular S1-S2. Lungs clear. Psych fair mood and affect. Neurologic alert and oriented x3. ASSESSMENT: 1. Atrial fibrillation with with rapid ventricular response, now stable. 2. Hypertension. 3. Chronic obstructive pulmonary disease. 4. Status post lumbar fusion. Continue with Eliquis, beta blockers, amiodarone. Will follow up his heart rhythm as an outpatient. He will be able to be discharged once he gets a walker. Continue to wear his LSO brace. Please see further orders. MMODL / IJN: [id number] /
[2021-09-05] MEDS: QUEtiapine 100 MG TAB PO SCH (21:24)
[2021-09-05] MEDS: polyethylene glycoL 3350 17 GM POWD.PACK PO SCH (21:24)
[2021-09-05] MEDS: BENZTROPINE MESYLATE 0.5 MG TAB PO SCH (21:24)
[2021-09-05] MEDS: OLANZapine 7.5 MG TAB PO SCH (21:24)
[2021-09-06] MEDS: LACTATED RINGERS 1,000 ML IV SCH (04:34)
[2021-09-06] MEDS: HYDROcodone/APAP 7.5-325MG 1 EACH TAB PO SCH ×2 (05:50→12:11)
[2021-09-06] MEDS: SODIUM CHLORIDE 0.9% 1,000 ML IV SCH (05:51)
--- NOTE | 2021-09-06 07:44 | P.PN ---
Subjective Progress Note Date: 09/06/21 Patient seen and examined this morning is doing fairly well although is complaining that his pain medications orally are not helping him enough. He states that he is on [place] tens at home but is only on [place] 7.5 here. States pain in his back but he has been up with physical therapy and moving around. He is currently eating breakfast. He denies any perineal numbness or tingling denies any fevers chills shortness breath or chest pain at this time. He states he is ready to go home. He will likely need home care due to his home situation as well as need for continued help. Objective - Vital Signs Vital signs: Vital Signs Temp 98.4 F 09/06/21 04:00 Pulse 90 09/06/21 04:00 Resp 16 09/06/21 04:00 BP 103/63 09/06/21 04:00 Pulse Ox 95 09/06/21 04:00 Intake & Output 09/05/21 09/06/21 09/06/21 18:59 06:59 18:59 Intake Total 540 Output Total 1150 800 Balance -610 -800 Intake: IV 300 0.9 300 Oral 240 Output: Urine 1150 800 Other: Voiding Method Urinal Diaper - Exam Patient is alert and oriented 3 appears well-nourished well-hydrated is in no acute distress. They do not appear septic. On exam the patient has no tenderness to palpation of her thoracic or lumbar spine. There is no edema or ballottement sign. Lower extremities with 4+/5 strength in all major muscle groups Upper extremities show [5]/5 strength in all major muscle groups. To focal deficits, deconditioning [2]/4DTR all UE and LE b/l Patient shows a negative Homans, Zapata's, negative Babinski's negative clonus bilaterally. negative straight leg raise bilaterally. No tensioning signs. Cranial nerves II through XII are grossly intact. There is FROM that is painless of the b/l UE and LE in all major joints [w/o pain]. They are intact to light touch sensation in L2 to S1 nerve distribution. Patient has palpable dorsalis pedis was posterior tibial pulses. Compartments are soft and compressible. Dressings are clean and dry incision is clean and dry - Labs CBC & Chem 7: 09/04/21 08:58 09/03/21 08:44 Labs: Abnormal Lab Results - Last 24 Hours (Table) 09/05/21 Range/Units 08:44 Ferritin 747.0 H (22.0-322.0) ng/mL Assessment and Plan Assessment: 65-year-old male postop day 6 revision T10 to pelvis decompression and stabilization reduction and fusion 1. 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 LE weakness 4. Neurogenic claudication 5. Mechanical back pain Plan: -Appreciate peoplesoft hcm consultant and team management. -Activity: Ambulate QID, OOB all meals, up and about, limit lifting bending twis ting to less than 5 lbs. Use walker or cane if needed for stability. -Daily PT/OT, increase ambulation strength and balance. -[Brace when up and about, not needed in bed or chair] -Pain control: Increased to Percocet 7.5 for home -Meds: [reviewed] -GI ppx: senna, Miralax -DC [place] when up and about, bedside commode if needed -DVT PPX: Per cardio continue elliquis -Hygiene: Shower today. Maintain dressing clean and dry. Meticulous cleaning after BMs away from incision site -Encourage IS 10x/hr -Dispo: Home today with home health care Time with Patient: Greater than 30
--- NOTE | 2021-09-06 08:21 | P.DS ---
Providers Date of admission: 08/31/21 05:39 Expected date of discharge: 09/06/21 Attending physician: Duane Santiago DO Consults: 08/31/21 14:57 Consult Physician Routine Consulting Provider: Hayden Cat Consult Reason/Comments: Medical Management Do you want consulting provider notified?: Yes 09/01/21 17:28 Consult Physician Stat Consulting Provider: Yonatan Hogan Consult Reason/Comments: New A-fib, rvr Do you want consulting provider notified?: Yes Primary care physician: [facility] Course: Hospital Course: The patient was evaluated preoperatively and found to have the diagnosis of 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 They underwent appropriate preoperative care and were willing to undergo the intended procedure. They underwent a successful revision of T10 to pelvis with SI joint fusion, were recovered appropriately and sent to the floor. While on the floor they worked with physical therapy, occupational therapy and nursing to enhance their recovery experience. Their pain was well controlled through their stay and they were started on appropriate medications, DVT ppx modalities, activity and dietary needs. Daily labs were monitored closely, and transfusions were only used when necessary. Medicine as well as other consulting services have made their input and have helped with our team approach and multidisciplinary care. PT milestones have been met and passed and they have made the recommendation of home with home care for this patient and treating providers agree with this care path. The patient will be discharged home with appropriate medications, instructions and follow-up information and in stable condition. Assessment: Patient is alert and oriented 3 appears well-nourished well-hydrated is in no acute distress. They do not appear septic. On exam the patient has no tenderness to palpation of her thoracic or lumbar spine. There is no edema or ballottement sign. Lower extremities with 4+/5 strength in all major muscle groups Upper extremities show [5]/5 strength in all major muscle groups. To focal deficits, deconditioning [2]/4DTR all UE and LE b/l Patient shows a negative Homans, Zapata's, negative Babinski's negative clonus bilaterally. negative straight leg raise bilaterally. No tensioning signs. Cranial nerves II through XII are grossly intact. There is FROM that is painless of the b/l UE and LE in all major joints [w/o pain]. They are intact to light touch sensation in L2 to S1 nerve distribution. Patient has palpable dorsalis pedis was posterior tibial pulses. Compartments are soft and compressible. Dressings are clean and dry incision is clean and dry Patient Condition at Discharge: Good Plan - Discharge Summary Discharge Rx Participant: No New Discharge Prescriptions: New Cyclobenzaprine [Flexeril] 5 mg PO TID #90 tablet Gabapentin 300 mg PO TID #90 cap Apixaban [Eliquis] 5 mg PO BID 30 Days #60 tab cefaDROXiL [Duricef] 500 mg PO Q12HR 5 Days #10 cap Polyethylene Glycol 3350 [Miralax] 17 gm PO HS PRN #527 gm PRN Reason: Constipation HYDROcodone/APAP 10-325MG [[place] 10-325] 1 tab PO Q4-6H PRN #56 tab PRN Reason: Pain Sennosides/Docusate Sodium [Senna Plus 8.6-50 mg Tablet] 1 each PO DAILY PRN #20 tablet PRN Reason: Constipation No Action Multivitamins, Thera [Multivitamin (formulary)] 1 tab PO 1200 lamoTRIgine [LaMICtal] 200 mg PO QAM HYDROcodone/APAP 10-325MG [[place] 10-325] 1 tab PO TID Potassium (Unknown Dose) 1 tab PO HS lamoTRIgine [LaMICtal] 25 mg PO 1200 QUEtiapine [SEROquel] 100 mg PO HS Benztropine Mesylate [Cogentin] 0.5 mg PO HS [place]-3 Fatty Acids/Fish Oil [Fish Oil 1,000 mg Softgel] 1 each PO DAILY OLANZapine [ZyPREXA] 15 mg PO HS Magnesium (Unknown Dose) 1 tab PO HS Ginseng 100 mg PO DAILY Discharge Medication List Benztropine Mesylate [Cogentin] 0.5 mg PO HS 08/25/21 [History] Ginseng 100 mg PO DAILY 08/25/21 [History] HYDROcodone/APAP 10-325MG [[place] 10-325] 1 tab PO TID 08/25/21 [History] Magnesium (Unknown Dose) 1 tab PO HS 08/25/21 [History] Multivitamins, Thera [Multivitamin (formulary)] 1 tab PO 1200 08/25/21 [History] OLANZapine [ZyPREXA] 15 mg PO HS 08/25/21 [History] [place]-3 Fatty Acids/Fish Oil [Fish Oil 1,000 mg Softgel] 1 each PO DAILY 08/25/21 [History] Potassium (Unknown Dose) 1 tab PO HS 08/25/21 [History] QUEtiapine [SEROquel] 100 mg PO HS 08/25/21 [History] lamoTRIgine [LaMICtal] 25 mg PO 1200 08/25/21 [History] lamoTRIgine [LaMICtal] 200 mg PO QAM 08/25/21 [History] Apixaban [Eliquis] 5 mg PO BID 30 Days #60 tab 09/02/21 [Rx] Cyclobenzaprine [Flexeril] 5 mg PO TID #90 tablet 09/06/21 [Rx] Gabapentin 300 mg PO TID #90 cap 09/06/21 [Rx] HYDROcodone/APAP 10-325MG [[place] 10-325] 1 tab PO Q4-6H PRN #56 tab 09/06/21 [Rx] Polyethylene Glycol 3350 [Miralax] 17 gm PO HS PRN #527 gm 09/06/21 [Rx] Sennosides/Docusate Sodium [Senna Plus 8.6-50 mg Tablet] 1 each PO DAILY PRN #20 tablet 09/06/21 [Rx] cefaDROXiL [Duricef] 500 mg PO Q12HR 5 Days #10 cap 09/06/21 [Rx] Follow up Appointment(s)/Referral(s): [facility], [NON-STAFF] - Rona Merrill MD [STAFF PHYSICIAN] - 1 Week Hayden Cat MD [Primary Care Provider] - 1 Week Daune Santiago DO [Doctor of Osteopathic Medicine] - 2 Weeks Activity/Diet/Wound Care/Special Instructions: Spine Discharge and Recovery Instructions Date of Surgery: 08/31/2021 Diagnosis: Proximal junction failure with kyphotic deformity Procedure: Revision of T10 to pelvis with SI joint fusion Medications: See medication list All medication refills should be obtained through your primary care doctor or your clinic spine surgeon. Please discuss prescription refills at your follow up appointment. Do not call the hospital for medication refills. Dressing: Leave your dressing in place for a total of 5 days post operatively. Then you may remove your dressing and leave open to air. Keep the area clean and if not able to keep area clean, then cover with sterile gauze and tape. Showering: You may shower 3 days after your procedure allowing soap and water to run over incision. Do not scrub. Do not soak. Blot dry. Follow up: Please confirm a follow up appointment with your surgeon 3 weeks post operatively. Please make an appointment to follow up with your PCP in 1-2 weeks after surgery for evaluation 3 phase, 3-week plan POST OP WEEKS 1-3 1. Lifting/carrying/pushing/pulling limited to less than 5 pounds. 2. Do not sit for longer than 15 minutes at one time. Get up and walk around. Prolonged sitting is NOT advised. If you lay down, see if you can tolerate laying down on you front (belly side) 3. Walk for periods of 15 minutes = 1 mile but no longer; do it multiple times times each day. 4. Ice your low back after activity. POST OP WEEKS 3-6 1. Lifting limited to less than 20 pounds. 2. Do not sit for longer than 30 minutes at a time. Frequently change positions. Use a sit-to stand workstation or take frequent breaks from sitting if you have returned to work. 3. Walk for 30 minutes each day. If possible, do these three or more times a day POST OP WEEKS 6+ At your 6-week appointment we will give you a physical therapy referral to focus on a core stabilization and strengthening program. You should also work on leg & buttock strengthening, hamstring & quadriceps stretching, and continue a low impact aerobic activity program such as swimming, walking, or riding a stationary bicycle. During the initial 6 weeks after your surgery, you are at the highest risk of re-injuring your spine. You should generally avoid BLTs (bending, lifting and twisting combination motions) and follow the above guidelines to reduce the chance of reinjury. You can anticipate post op appointments in our office at approximately 3 weeks and 6 weeks after your surgery. INCISION CARE: If your incision is not draining you do NOT need to cover it with a dressing. Keep your incision clean, dry and intact. In most cases, we apply skin glue, paulina or sutures to the incision at the time of surgery. This will be like a crust or have the appearance of a scab and will fall off in time on its own. The stitches or paulina need to be removed at 3 weeks post op appointment. You may begin to shower 3 days after surgery (this allows the glue to barnett well). However, please avoid scrubbing the incision site or peeling off any of the skin glue. This will ensure optimal healing of your incision. Also, during this time avoid soaking the incision area in water - this includes swimming pools, hot tubs or baths. No ointments, lotions or oils on the incision until your surgeon allows. Leave paulina, sutures or glue in place. Neurological dysfunction that comes on suddenly can also be a sign of a stroke. Below some common symptoms of a stroke are listed: B - balance difficulty such as sudden onset walking or leaning to one side - NEW E - eye problem such as sudden double vision or trouble seeing on one side - NEW F - Facial weakness or numbness on one side - NEW A - Arm or leg weakness or numbness on one side - NEW S - Slurred speech or difficulty with word finding - NEW T - Time is BRAIN! Call 911 as soon as you recognize these symptoms Diet: Consume a regular diet rich in vegetables and lean protein such as chicken or fish. You should consume in a ratio of approximately 20% fats|40% carbohydrates|40%protein. Vegetables, sweet potatoes, brown rice or quinoa are examples of good carbohydrates. Chips, white bread, cookies and sweets/sugar are examples of bad carbohydrates. Limit your bad carbs, go wild with good carbs. "Life's Simple 7" Guidelines as per [place] [employer] These will help you reclaim your life after surgery and hand former helper in your recovery, keeping in mind your restrictions. (1) Get Active. Physical activity can help people lose weight, control high blood pressure and cholesterol, feel emotionally better, and sleep better. (2) Control Cholesterol. Avoid a diet high in saturated fat, trans fat, & cholesterol. Limit whole milk & cream, ice cream, butter, egg yolks, processed meats (like sausage and hot dogs), and fatty meats. Choose healthy foods that are low in saturated fat, trans fat and cholesterol which include: Fruits and vegetables, fiber rich grain products (like whole grain pasta and brown rice), lean meat such as chicken, fish, nuts, seeds, and legumes. (3) Eat Better. Eat small portions. Shop at the grocery with a list and do not stray from it. Tips for a healthy diet include: Limit sodium intake to less than 1500mg daily, avoid prepackaged, processed, and fast foods, choose a diet rich in fruits, vegetables, and whole grain, high fiber foods, and limit saturated & cholesterol in your diet. (4) Manage Blood Pressure. If you have high blood pressure, you should have a cuff at home so that you can check your blood pressure regularly. Be sure you have a good cuff. An arm one is generally better than a wrist one. Bring the cuff to a doctor's appointment to validate that the measurements that your cuff are taking are accurate. Take your blood pressure twice daily when you are sitting down and relaxing. Record the numbers in a log and bring this log with you to your doctors' appointments. (5) Lose Weight if your BMI is above 25. A healthy BMI is between 19-25. To calculate Your BMI, you may use a Standard BMI Calculator on the NIH BMI website: <www.nhlbi.nih.gov/guidelines/obesity/BMI/bmicalc.htm>. Weigh oneself daily. If you are overweight, set a goal to lose weight. A pound a week loss if needed is a good target. (6) Reduce Blood Sugar. Limit foods and liquids with "added sugars." (Added sugars include sucrose, fructose, glucose, maltose, dextrose, high fructose corn syrup, corn syrup, concentrated fruit juice and honey). (7) Stop Smoking. If you smoke, quitting smoking is one of the best things that you can do for your health. Smoking increases your risk of heart attack, stroke, and peripheral vascular disease, which is a build-up of plaque in your arteries. Please discard all the cigarettes and lighters in your house. Have a plan for what you will do when you have the urge to smoke. Direct and second- hand smoke shortens your life as well as the lives of your family, friends and others around you. For your health and the health of those around you, please consider quitting! Proper Bending Body Mechanics: Maintain a wide stance with one foot slightly in front of the other. Keep your back straight. Bend utilizing the strength in your hips and knees. Do not bend at the waist. Maintain the lifted object at your waist-level close to your body. Avoid lifting weight that causes immediately pain or pain anywhere in the body afterwards. Smoking/Nicotine If there was ever one thing that you could do to increase your overall health, decrease your risk of cardiovascular problems by about 39% the second you make the choice, it is to STOP SMOKING. Your body's most instant gratification is the second you stop smoking. We have all heard the studies, read the articles but it is true, smoking is extremely bad for your overall health, and moreover it is detrimental to your bone health. Nicotine, IN ANY FORM, kills bone cells, prevents your body from healing fractures, and significantly prolongs healing after surgery. In spine surgery specifically, it increases your risk of not healing your bones to create a fusion and increases your risk of having a revision surgery due to this up to 60%. I know it is hard. I know it feels impossible. But there are ways. Take control of your life. We are here to help you through it. And when you are ready, ask us and we can direct you to help if you desire. Use the START Plan to Quit Smoking (please visit the Helpguide.org website listed below for more information): S = Set a quit date. Choose a date within the next 2 weeks, so you have enough time to prepare without losing your motivation to quit. If you mainly smoke at work, quit on the weekend, so you have a few days to adjust to the change. T = Tell family, friends, and co-workers that you plan to quit. Let your friends and family in on your plan to quit smoking and tell them you need their support and encouragement to stop. Look for a quit jeanine who wants to stop smoking as well. You can help each other get through the rough times. A = Anticipate and plan for the challenges you'll face while quitting. Most people who begin smoking again do so within the first 3 months. You can help yourself make it through by preparing ahead for common challenges, such as nicotine withdrawal and cigarette cravings. R = Remove cigarettes and other tobacco products from your home, car, and work. Throw away all your cigarettes (no emergency pack!), lighters, ashtrays, and matches. Wash your clothes and freshen up anything that smells like smoke. Shampoo your car, clean your drapes and carpet, and steam your furniture. T = Talk to your doctor about getting help to quit. Your doctor can prescribe medication to help with withdrawal and suggest other alternatives. If you can't see a doctor, you can get many products over the counter at your local pharmacy or grocery store, including the nicotine patch, nicotine lozenges, and nicotine gum. Resources for Quitting Smoking: <https://www.[place].gov/documents/mdch/Q uit_Tobacco_Resources_for_patients_313480_7.pdf> Supplementation: Take recommended dosages of Vitamin D and Calcium to help fortify your bones and help them to heal. See your health maintenance packet for dosages and recommended levels. DVT/VTE prophylaxis: You will be given compression stockings from the hospital. Wear these daily for the first two weeks after surgery. You may take them off at night. You may be prescribed a medication to help thin your blood. Take this as directed. If you are not prescribed this medication, early and frequent ambulation has been shown to be the best prophylaxis to deep vein thrombosis and sequelae related to this event. Discharge Disposition: HOME WITH HOME HEALTH SERVICES
[2021-09-06] MEDS: IPRATROPIUM-ALBUTEROL 3 ML NEB INHALATION SCH ×2 (08:30→11:25)
[2021-09-06] MEDS: MULTIVITAMINS, THERA 1 EACH TAB PO SCH (08:33)
[2021-09-06] MEDS: lamoTRIgine 100 MG TAB PO SCH (08:33)
[2021-09-06] MEDS: CYCLOBENZAPRINE 5 MG TAB PO SCH (08:33)
[2021-09-06] MEDS: METOPROLOL TARTRATE 12.5 MG TAB PO SCH (08:33)
[2021-09-06] MEDS: NICOTINE 21MG/24HR PATCH TRANSDERM SCH (08:33)
[2021-09-06] MEDS: GABAPENTIN 300 MG CAP PO SCH (08:33)
[2021-09-06] MEDS: AMIODARONE 200 MG TAB PO SCH (08:33)
[2021-09-06] MEDS: APIXABAN 5 MG TAB PO SCH (08:33)
[2021-09-06 11:38] VITALS: BP 102/65; PULSE 79; RESP 18; TEMP 98.1
[2021-09-06] MEDS: lamoTRIgine 25 MG TAB PO SCH (12:11)
--- NOTE | 2021-09-06 13:06 | P.PN ---
Subjective This is a pleasant 65-year-old male past medical history significant for anxiety, bilateral lower extremity radiculopathy s/p prior surgery. 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 We have been asked to see in consultation for new onset atrial fibrillation with RVR. Patient presents to the hospital for a planned procedure. On 08/31/21, He underwent revision T10 to pelvis decompression and fusion with bilateral open SI fusion by Ortho. Patient seen and examined at bedside, he states his lower back pain is not controlled. He denies any palpitations, dizziness, chest pain, shortness of breath, lightheadedness. He denies history of CAD, [place], Stroke, Diabetes, hypertension, high cholesterol, or atrial fibrillation. On 09/01/21, patient was noted to be tachycardic, found to be in atrial flutter with HR 150s-160s. Patient did have symptoms of lightheadedness only. He was transferred to . Started on Cardizem drip. Telemetry reviewed, patient has been in and out of atrial fibrillation and flutter with RVR. HR 140s this morning, Cardizem drip increased to 10mg/hr and patient converted appeared to be in atrial flutter with controlled ventricular rates 09/06/2021 Patient seen and examined at bedside, no acute distress. His pain is better controlled. Telemetry reviewed, patient converted to sinus mechanism this mo rning. TSH was within normal limits. Echocardiogram revealed an EF of 5560% He's currently maintained on Eliquis 5 mg twice a day, PO amiodarone 200mg TID, metoprolol tartrate 12.5 mg daily PHYSICAL EXAMINATION Vitals blood pressure 102/65, heart rate 79, afebrile, oxygen saturations 94% on room air CONSTITUTIONAL: No apparent distress. HEENT: Neck Supple. No JVD. CHEST EXAMINATION: Lungs are clear to auscultation. No chest wall tenderness is noted on palpation or with deep breathing. HEART EXAMINATION: Regular rate and rhythm. S1, S2 heard. No murmurs, gallops or rub. ABDOMEN: Soft, nontender. Positive bowel sounds. EXTREMITIES: 2+ peripheral pulses, no lower extremity edema and no calf tenderness. SKIN: Warm, dry NEUROLOGIC EXAMINATION: Patient is awake, alert and oriented x3. ASSESSMENT Paroxysmal atrial fibrillation, and atypical flutter with RVR, new onset -[id number] score 0, however, his this year will put him at 1, currently in sinus mechanism Status post revision T10 to pelvis decompression and fusion with bilateral open SI fusion on 08/31. PLAN PO amiodarone 200mg TID 7 days, then 200mg BID for 7 days, then 200mg daily thereafter (tapering instructions in discharge) Per Viki MITCHELL ok to start anticoagulation, Eliquis was started. Continue Eliquis 5mg BID Continue metoprolol tartrate 12.5mg BID Per case management Eliquis is covered. From a cardiology perspective, patient is stable to be discharged from a cardiology perspective. Follow up outpatient with Dr. Merrill Nurse practitioner note has been reviewed by physician. Signing provider agrees with the documented findings, assessment, and plan of care. Objective - Vital Signs Vital signs: Vital Signs Temp 98.1 F 09/06/21 11:38 Pulse 79 09/06/21 11:38 Resp 18 09/06/21 11:38 BP 102/65 09/06/21 11:38 Pulse Ox 94 L 09/06/21 11:38 Intake & Output 09/05/21 09/06/21 09/06/21 18:59 06:59 18:59 Intake Total 540 120 Output Total 1150 800 Balance -610 -800 120 Intake: IV 300 0.9 300 Oral 240 120 Output: Urine 1150 800 Other: Voiding Method Urinal Urinal Diaper Diaper - Labs CBC & Chem 7: 09/04/21 08:58 09/03/21 08:44 Labs: Abnormal Lab Results - Last 24 Hours (Table) 09/05/21 Range/Units 08:44 Ferritin 747.0 H (22.0-322.0) ng/mL
--- NOTE | 2021-09-15 10:06 | P.OP ---
Date of Procedure: 08/31/21 Preoperative Diagnosis: 1. 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 LE weakness 4. Neurogenic claudication 5. Mechanical back pain Postoperative Diagnosis: 1. 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 LE weakness 4. Neurogenic claudication 5. Mechanical back pain 6. Dural erosion Procedure(s) Performed: 1. Exploration of fusion L2-Pelvis (13536) 2. Removal of segmental instrumentation L2-Pelvis (62945) 3. T10-L1 Posteriolateral instrumentated fusion (95496, 70484) 4. L1-2 Combined posteriolateral and interbody fusion (33490) 5. L2-3 combined posteriolateral and interbody fusion (31890) 6. Revision posteriolateral fusion L2-Pelvis (04583) 7. Pelvis fixation other than sacrum (76376) 8. Open bilateral instrumented sacroliliac arthrodesis (46701/50) 9. Insertion of biomechanical device L1-2 and L2-3 (85043j7) 10. Segmental instrumentation 7-12 segments (34084) 11. L1-2 and L2-3 intradiscal osteotomy for deformity correction (3 column osteotomy [57909, 58621]) 12. T12-L3 decompressive laminectomy, complete facetectomy and foraminotomy (90067) 13. Use of intraoperative neuromonitoring 14. Interpretation of intraoperative flouroscopy <1 hr (79899) Implants: -Globus Creo screws and rods -Globus Sable cage 6-12 8 deg lord x1 -Amplify 11 x med 8 deg x1 -x2 10.5 x 70 and 65 mm SI bone Torq screws -Theracell DBM bullets -Theracell DMB bags -Bio4 -Autograft -Allograft Anesthesia: GETA Surgeon: Duane Santiago Shop Assistant #1: Viki Rasmussen (Was present and assisted with positioning, opening, hardware removal, screw placement, jia placement, drain placement and closure) Shop Assistant #2: Reid Luna (Was present and assisted in the mid portion of the case for cage placement) Estimated Blood Loss (ml): 700 IV fluids (ml): 2,500 Urine output (ml): 350 Pathology: other (Lumbar spine tissue) Condition: stable Disposition: PACU Indications for Procedure: Gerald Díaz is a 65 y/o white male presenting for evaluation of lumbar pain with bilateral lower extremity radiculopathy. It was my pleasure to have seen and examined Gerald Díaz. In our visit today we have had a chance to go over subjective complaints, physical examination findings and treatments including the natural course history without intervention and various interventional options. The patients imaging demonstrates, Xrays: of the L spine show post surgical changes from L2- pelvis with instrumentation screws and rods at these levels b/l. The proximal portion has had failure with the rods and screws at L2 no longer associated. There is local kyphosis at L2-3 and L1-2 related to proximal junctional failure from this incident. There is severe erosion of the L1 VB secondary to spondylosis and the kyphosis resulting. The remainder of the screws are in position with no evidence of failure or loosening. There is some interbody fusion processes noted, however no good posterolateral bone visualized. There is a sub cutaneous stimulator noted in the L spine. There are no other fractures or lesions noted. AP pelvis shows hardware as mentioned. No fracture or dislocation b/l hip OA. CT myelogram lumbar: There is sagittal and coronal deformity noted due to hardware failure at L2 and L2-3 failure. There is vacuum disc phenomena noted at these levels as well as collapse of L1 secondary to old fracture in this area. There is kyphotic alignment due to these factors along with hardware failure and jia disengagement from the screws. Set screws noted floating in soft tissues in this area. There is stenosis noted at the L1-3 levels as well. There is fusion noted below this at L3-P fusion with PL fusion noted. NO other fracture noted. No lesions. CT myelogram thoracic: Widespread spondylotic changes noted with flattening of the normal kyphosis. There is disc bulges noted at the lower thoracic segments not causing significant stenosis. There is no fracture noted at this time.On physical exam, Gerald Díaz demonstrates Generalized weakness in LE b/l without focal deficits. I have explained to the patient that as their condition progresses it will cause further neurological deficits and eventual paralysis. Based on the patients imaging, physical exam, and the rapid progression and disabling nature of their symptoms, at this time I recommend surgery in the form or a: Revision decompression and fusion from T8-pelvis. I discussed the risk and benefits of this procedure at length with Gerald Díaz. The patient and his significant other agreed to considered pursuing the procedure abovementioned. Prior to surgery, she should follow up with her PCP (Cardio, ID, IM etc) for clearance. Questions were invited and answered, and the patient wishes to proceed as outlined below. Currently, I am recommendin.Revision Decompression and fusion from T8-pelvis 2.Follow up with PCP for surgical clearance 3.Review of surgical risks and benefits as well as an educational packet on the proposed surgical procedure. Description of Procedure: The patient was seen and examined in the preoperative area. All preoperative protocols were followed. Informed consent was obtained risks and benefits of the procedure were discussed at length. Risks including bleeding infection damage to the surrounding tissue and risk of reoperation were discussed with the patient. Risk of anesthesia up to and including was a discussed with the patient. These are outlined in the risk review. They were willing to accept these risks and all of the risks of surgery. The patient was given a weight- based dose of antibiotics in the form of 2 g ancef redosed ever 4 hrs. The patient was seen and evaluated by the anesthesia team who deemed them fit for surgery. The site was marked, the patient was willing to proceed with the procedure. The patient was transferred to the operative suite by the Department of anesthesia. They were then drifted off to sleep by the department anesthesia and GETA was performed. The patient tolerated this well. Waters catheter was placed by nursing staff, atraumatically. Once confirmation of lines and ventilation the patient was transferred to a prone Damon table very carefully. All bony prominences including wrists, elbows, axilla, chest, hips, and thighs, and feet were padded very well. Special attention was paid to the genitalia and these were padded accordingly. SCDs were placed on bilateral lower extremities and were connected. Arms were well padded and placed on arm boards up and out in the 90/90 position. Once in position, again we confirmed good ventilation capabilities and that lines were running appropriately. The patient's Thoracolu mbar spine was then exposed. 1010s were placed outlining the incision site. Standard alcohol was used to clean the incision site and allowed to dry. C-arm was used to biomark the patient and confirm level for incision which was marked with a skin marker. Operative briefing was performed with all teams and everyone in agreement to proceed. The patient was then prepped and draped in a normal sterile fashion. Timeout was then performed and all parties were in agreement with the procedure to be performed. Midline skin incision was then made over the previously biomarked area. Dissection was taken down midline to the thoracolumbar and lumbosacral facia which was identified and cleaned with a cob. Midline incision was then made in the facia identifying spinous processes of the T and L spine. Dissection was then carefully taken subperiostally over the lamina of T10-L2. Hardware was identified at L2 and was exposed to the pelvis. There was midline bony defect which was carefully cleaned. Once the hardware was exposed the fusion was explored. There was hardware failure at L2 with set screw failure and jia dislodgement with kyphosis at this region. Screws at this level were loose. All set screws were then removed followed by rods. Screws at S1 b/l were loose as well. All hardware was then removed L2-Pelvis. We then cleaned and irrigated and debrided scar tissue and the pedicle voids. We irrigated with antibiotic solution the wound. We then under lateral floursocopic guidance placed new hardware from T10 down to the pelvis using a freehand technique. Signal Tower Director hole was made with a mel followed by a pedicle finder, feeler to ensure within the pedicle and then screw. We placed screws to S1 and then placed modified Mcgill illiac screws using lateral flouroscopy as well. We used a high speed mel to make a airplane pilot crop dusting hole followed by a blunt pedicle finder. We then confirmed placement in the teardrop with a 30/30deg outlet view. Once confirmed ball tip probe used to ensure within bone and screw was placed. We prefromed this bilaterally. We then decorticated the SI joint and performed formal fusion for increased stabilization due to previous hardware loosening and pseudoarthrosis as well as patients continued buttock and SI pain. We then placed in an S2Ai approach b/l SI bone Torq screws. These were placed over a wire which was gently tapped into position under flouroscopic guidance. Once in position we tapped over the wire and then placed the screw. Inlet, outlet, and oblique views confirmed good placement of screws. We then irrigated and took AP imaging of all screws and confirmed their safe placement. We then turned our attention to the decompression, reduction deformity correction and anterior column stabilization. We then turned attention to T12-L2 where we performed bilateral laminectomy complete facetectomy foraminotomies. A 3 column osteotomy of L1 and L2 was then done under lateral fluoroscopic imaging. While protecting the nerve root and the dura we accessed the disc space bilaterally with an osteotome performing intradiscal osteotomy with the osteotome and lateral position this allowed for deformity correction. Osteotome was advanced anteriorly the anterior two thirds vertebral body. Bone and disc was then removed and complete discectomy was performed using jackie osteotome down-biting curettes to Justin. Once we had achieved her desired height a corresponding Sabal cage was selected and carefully impacted into place while protecting the neural elements. Prior to this anterior to the cage and placed autograft allograft as well as DBM. The cages then impacted in position was confirmed to be in good position midline. The cages then expanded carefully under lateral fluoroscopic imaging which obtained height and orthodoxy as well as reduction. Once the cage was stable analytical chemistry teacher was removed and the cages then back filled with DBM and autograft. Meticulous hemostasis was performed in this area. With a return attention to the L2-L3 interspace where we performed bilateral laminectomy complete facetectomy foraminotomies as well as 3 column osteotomy in the form of an intradiscal osteotomy. While performing the bilateral laminectomy decompression due to the scar tissue that was built up between L2 and L3 there was a dural erosion that was encountered upon removal of the lamina. This was small and posterior. Was identified and quickly dealt with. 6-0 Prolene was used within the dura and was sewn. This created a watertight closure. We then harvested subcutaneous fat and sewed in a fat patch graft over this repair for extra support due to the friable dural tissue in this area. We then performed a Valsalva to 40 mmHg and there was no CSF leak. We then proceeded, Bilaterally disc was entered with a osteotome and advance an anterior two thirds of the vertebral body and disc and bone was removed. Total dissection was then performed using combination of sequential shaving osteotome Raptor, pituitary down-biting curette. Once this was accomplished we packed the anterior disc space with autograft allograft and DBM. A corresponding height and L5 cage was then selected and while protecting the neural elements was impacted into position. Once it was in good position was expanded and locked into position with a locking screw. We then backfilled the cage DBM. We confirmed good position on AP and lateral fluoroscopy. Once all this was accomplished with interrupted attention to cementation of the superior screws due to the patient's bone quality jigs were placed for cement passage cement was then injected through the fenestrated screws under lateral fluoroscopy. Cement was confirmed to be in good position and there were no vital sign changes during cementation patient remained stable no cement myelogram and no cement angiogram. We then sized and selected rods and bent them accordingly for reduction. Rods were then first placed in the pelvis and secured and then reduced into the upper portion sequentially. Set screws were placed and then were final tightened and the position. Rods were reduced and good reduction was performed and lateral fluoroscopy. Set screws were final tightened. We then performed a decortication posterolaterally of the L2 through pelvis region ensuring decortication transverse processes as well as the sacral ala bilaterally the SI joints bilaterally once again. The performed posterior lateral decortication of T10 through L1 as well. This was done of the facet joints transverse processes posterior lateral elements. We then thoroughly irrigated the wound with 6 L of antibiotic irrigation and normal sterile saline. We again performed Valsalva to 40 mmHg and held it there was no CSF leak. We then selected cross-links and these were placed and final tightened. We then placed bone graft and posterior lateral gutters impacted into place with place bone graft in the open SI joints as well and impacted into place. Surgicel was placed over the dura meticulous hemostasis performed. We then placed a drain deep to the fascia was secured in position 2 g of vancomycin powder were placed deep within the wound. We then p roceeded with layered closure versus the fascial layer with #1 Vicryl and 0 PDS followed by 0 Vicryl in the deep subcu tissue 2-0 Vicryl in the superficial subcu tissue and skin paulina in the skin. The wound edges approximated very well. Drain was secured in place with an 0 PDS and placed on half suction. The wound was then cleaned and dressed sterilely with an operative foam 4 x 4 drain sponge and Tegaderm. The patient was transferred back to their hospital bed atraumatically. Drain continued to hold suction and were in good position. Patient was then awakened and extubated by the department of anesthesia having tolerated the procedure very well with no complications. They were transferred to the postoperative care unit in stable condition.
== END 2021-09-06 14:29 | disposition home health service (06) | DRG 908 ==
LOC: 2ORMAIN 08-31 05:39 → 2SICU 08-31 15:13 → 4SSUR 08-31 15:27 → 3SCARD 09-01 19:43
PROVIDERS: ADMIT Orthopaedic Surgery; ATTEND Orthopaedic Surgery
PROC: 0SG1071 Fusion of 2 or more Lumbar Vertebral Joints with Autologous Tissue Substitute, Posterior Approach, Posterior Column, Open Approach (ICD-10-PCS; principal; 2021-08-31 07:30)
PROC: 0SH704Z Insertion of Internal Fixation Device into Right Sacroiliac Joint, Open Approach (ICD-10-PCS; principal; 2021-08-31 07:30)
PROC: 0SP004Z Removal of Internal Fixation Device from Lumbar Vertebral Joint, Open Approach (ICD-10-PCS; principal; 2021-08-31 07:30)
PROC: 0SG10A0 Fusion of 2 or more Lumbar Vertebral Joints with Interbody Fusion Device, Anterior Approach, Anterior Column, Open Approach (ICD-10-PCS; principal; 2021-08-31 07:30)
PROC: 0RGA071 Fusion of Thoracolumbar Vertebral Joint with Autologous Tissue Substitute, Posterior Approach, Posterior Column, Open Approach (ICD-10-PCS; principal; 2021-08-31 07:30)
PROC: 01NB0ZZ Release Lumbar Nerve, Open Approach (ICD-10-PCS; principal; 2021-08-31 07:30)
PROC: 0RG7071 Fusion of 2 to 7 Thoracic Vertebral Joints with Autologous Tissue Substitute, Posterior Approach, Posterior Column, Open Approach (ICD-10-PCS; principal; 2021-08-31 07:30)
PROC: 8E0WXBG Computer Assisted Procedure of Trunk Region, With Computerized Tomography (ICD-10-PCS; principal; 2021-08-31 07:30)
PROC: 0SH804Z Insertion of Internal Fixation Device into Left Sacroiliac Joint, Open Approach (ICD-10-PCS; principal; 2021-08-31 07:30)
PROC: 00NY0ZZ Release Lumbar Spinal Cord, Open Approach (ICD-10-PCS; principal; 2021-08-31 07:30)
PROC: 4A1004G Monitoring of Central Nervous Electrical Activity, Intraoperative, Open Approach (ICD-10-PCS; principal; 2021-08-31 07:30)
PROC: 0QB00ZZ Excision of Lumbar Vertebra, Open Approach (ICD-10-PCS; principal; 2021-08-31 07:30)
DX: T85.618A Breakdown (mechanical) of other specified internal prosthetic devices, implants and grafts, initial encounter (principal); I48.92 Unspecified atrial flutter; M40.294 Other kyphosis, thoracic region; M51.16 Intervertebral disc disorders with radiculopathy, lumbar region; R53.1 Weakness; M48.062 Spinal stenosis, lumbar region with neurogenic claudication; F20.9 Schizophrenia, unspecified; F31.9 Bipolar disorder, unspecified; E86.0 Dehydration; I08.1 Rheumatic disorders of both mitral and tricuspid valves; I10 Essential (primary) hypertension; I95.81 Postprocedural hypotension; I48.0 Paroxysmal atrial fibrillation; F41.9 Anxiety disorder, unspecified; F17.210 Nicotine dependence, cigarettes, uncomplicated; J44.9 Chronic obstructive pulmonary disease, unspecified; M47.26 Other spondylosis with radiculopathy, lumbar region; Z79.01 Long term (current) use of anticoagulants; Z79.899 Other long term (current) drug therapy; Z91.81 History of falling; Z98.1 Arthrodesis status; R00.0 Tachycardia, unspecified; Z88.8 Allergy status to other drugs, medicaments and biological substances
CPT/HCPCS: 72020; 72128; 72131; 80053; 82607; 82728; 82746; 84443; 85025; 85027; 86850; 86891; 86900; 86901; 88305; 93005; 93306; 94640; 94760

== ENCOUNTER → 2021-08-18 | Outpatient (CLI) | payer MEDICARE, OTHER ==
[2021-08-18 18:25] LABS: INR 0.96 (0.90-1.11); Prothrombin Time 10.9 sec (9.9-11.9)
[2021-08-18 18:27] LABS: HGB 16.2 g/dL (13.0-17.0); MCH 35.1 pg (27.0-32.0); MCHC 33.1 g/dL (32.0-37.0); MCV 106.1 fL (80.0-97.0); Mean Platelet Volume 9.8 fL (9.5-12.2); NRBC Per 100 WBC 0 /100 WBCS (0.0-0.0); Platelet Count 266 X 10*3/uL (140-440); RBC 4.62 X 10*6/uL (4.40-5.60); WBC 10.74 X 10*3/uL (4.50-10.00)
[2021-08-18 18:46] LABS: African American GFR (CKD) 66.8 (60.0-200.0); Anion Gap 10.7 mmol/L (10.00-18.00); BUN/Creat Ratio 8.23 Ratio (12.00-20.00); Blood Urea Nitrogen 10.7 mg/dL (9.0-27.0); Calcium 9.2 mg/dL (8.7-10.3); Carbon Dioxide 24.3 mmol/L (20.0-27.5); Non-African American GFR(CKD) 57.7 (60.0-200.0)
[2021-08-18 19:06] LABS: Basophils # (A) 0.05 X 10*3/uL (0.00-0.10); Basophils % (A) 0.5 %; Eosinophils # (A) 0.06 X 10*3/uL (0.04-0.35); Eosinophils % (A) 0.6 %; Immature Grans, Automated 0.5 %; Lymphocytes # (A) 2.06 X 10*3/uL (0.90-5.00); Lymphocytes % (A) 19.2 %; Macrocytosis (M) 2+; Monocytes # (A) 0.89 X 10*3/uL (0.20-1.00); Monocytes % (A) 8.3 %; Neutrophils # (A) 7.63 X 10*3/uL (1.80-7.70); Neutrophils % (A) 70.9 %
== END | disposition home or self-care (01) ==
LOC: LABPAT 11:25
PROVIDERS: ATTEND Orthopaedic Surgery
DX: Z01.812 Encounter for preprocedural laboratory examination (principal); T84.296D Other mechanical complication of internal fixation device of vertebrae, subsequent encounter
CPT/HCPCS: 80048; 85025; 85610; 87070

== ENCOUNTER → 2021-08-26 | Outpatient (CLI) | payer MEDICARE, OTHER | LOC: LABPAT 15:52 | PROVIDERS: ATTEND Orthopaedic Surgery | DX: Z01.812 Encounter for preprocedural laboratory examination (principal); Z22.322 Carrier or suspected carrier of Methicillin resistant Staphylococcus aureus; T84.296D Other mechanical complication of internal fixation device of vertebrae, subsequent encounter | CPT/HCPCS: 86850; 86900; 86901 ==

== ENCOUNTER → 2022-06-09 | Outpatient (CLI) | payer MEDICARE, OTHER ==
--- NOTE | 2022-06-09 18:03 | CTL ---
EXAMINATION TYPE: CT Low Dose Lung DATE OF EXAM: 06/09/2022 5:44 PM CLINICAL INDICATION:Male, 66 years old with history of Z87.891 PERSONAL HISTORY NICOTINE DEPENDENCE; current smoker x 35 years. 1 pack a day , history of tobacco use. COMPARISON: 09/01/2021 CT lumbar and thoracic spine. TECHNIQUE: Multiple axial non-contrast scans were obtained from approximately the lung apices through the upper abdomen. Coronal and sagittal reformatted images were obtained. Low dose technique was uti lized. CT DLP: 80.60 mGycm, Automated exposure control for dose reduction was used. CT Contrast: Contrast used: None Oral contrast used: None FINDINGS: ======== Lack of intravenous contrast and low dose technique limits the evaluation of the vascular and soft ti ssue structures. LUNGS: Mild centrilobular emphysema changes are seen throughout the lungs. Scattered air cysts are pr esent. No evidence of pulmonary fibrosis. No evidence of focal consolidation, pneumothorax or pleural effusion. Nodules: RUL: None. RML: None. RLL: None. IMANI: None. LLL: None. AIRWAY: Patent and unremarkable. HEART: Size within normal limits. MEDIASTINUM: No gross evidence of adenopathy. VASCULATURE: No aortic aneurysm. MUSCULOSKELETAL: No acute osseous abnormalities, postsurgical changes to the spine. Hardware appears intact. Vertebroplasty changes are no also noted within the spine. SOFT TISSUES/LYMPH NODES: Mild bilateral gynecomastia changes. LOWER NECK: No significant findings. UPPER ABDOMEN: No significant findings. IMPRESSION: 1. No clinically significant pulmonary nodules. 2. Mild emphysema changes. 3. Postsurgical changes spine with hardware in appropriate position. CT LUNG RAD AND CT CHEST RECOMMENDATION: Lung-Rad 1 Negative: Continue annual screening with LDCT in 12 months. S Modifier (other clinically significant findings): None Recommend smoking cessation (if current smoker), or continuation of smoking cessation (if prior smoke r). Annual screening for lung cancer with low-dose computed tomography is recommended in adults ages 55 to 77 years who have a 30 pack-year smoking history and currently smoke or have quit within the pa st 15 years. Screening should be discontinued once a person has not smoked for 15 years or develops a health problem that substantially limits life expectancy or the ability or willingness to have curat esthela lung surgery. Lung rads 2021 [email or web address]
== END | disposition home or self-care (01) ==
LOC: RADCTMAIN 17:07
PROVIDERS: ATTEND Family Medicine
DX: Z12.2 Encounter for screening for malignant neoplasm of respiratory organs (principal); J43.9 Emphysema, unspecified; F17.210 Nicotine dependence, cigarettes, uncomplicated
CPT/HCPCS: 71271

== ENCOUNTER → 2022-08-10 | Outpatient (CLI) | payer MEDICARE, OTHER ==
--- NOTE | 2022-08-10 10:48 | XR ---
EXAMINATION TYPE: XR abdomen 1V DATE OF EXAM: 08/10/2022 10:26 AM CLINICAL HISTORY: Failed colonoscopy. Colonoscopy extended to the proximal transverse colon level wi th diverticuli and polyps identified in June. TECHNIQUE: Single supine KUB image of the abdomen is obtained. COMPARISON: CT of the thoracolumbar spine September 01, 2021. FINDINGS: There is overall nonobstructive bowel gas pattern. Extensive surgical change to the thoraco lumbar spine and extending into the pelvis is redemonstrated. There are posterior stimulator devices that are redemonstrated. Patient had pain upon inserting a rectal tip due to hemorrhoids. There was difficulty in inflating th e balloon. Upon beginning barium enema insertion there is expulsion of the catheter. After delay due to clean up catheter is reinserted with pain. Balloon is inflated. Exam was set to continue when abebe ent stated he is unable to lay supine and move around in various positions for this exam which would make this nondiagnostic. At this point exam had to be terminated. Balloon was deflated and catheter w as withdrawn. IMPRESSION: Unsuccessful canceled barium enema study due to limited mobility related to extensive serena gical change in the thoracolumbar spine extending into the pelvis. Alternative testing such as CT colonography would be advised.
== END | disposition home or self-care (01) ==
LOC: RADFLMAIN 08:36
PROVIDERS: ATTEND Surgery
DX: R19.5 Other fecal abnormalities (principal)
CPT/HCPCS: 74018

== ENCOUNTER → 2023-02-07 | Outpatient (CLI) | payer MEDICARE, OTHER | END | disposition home or self-care (01) | LOC: LABPAT 13:11 | PROVIDERS: ATTEND Internal Medicine Clinical Cardiac Electrophysiology | DX: Z53.9 Procedure and treatment not carried out, unspecified reason (principal) ==

== ENCOUNTER → 2023-06-19 | Outpatient (CLI) | payer MEDICARE, OTHER ==
[2023-06-19 19:37] LABS: HCT 45.3 % (39.6-50.0); HGB 14.9 g/dL (13.0-17.0); MCH 35.6 pg (27.0-32.0); MCHC 32.9 g/dL (32.0-37.0); MCV 108.4 FL (80.0-97.0); Mean Platelet Volume 9.9 FL (9.5-12.2); NRBC Per 100 WBC 0 X 10*3/uL (0.00-0.01); Platelet Count 259 X 10*3/uL (140-440); RBC 4.18 X 10*6/uL (4.40-5.60); RDW 13.9 % (11.5-14.5)
[2023-06-19 21:11] LABS: Blood Urea Nitrogen 12.5 mg/dL (9.0-27.0); Carbon Dioxide 25.4 mmol/L (21.6-31.8); Chloride 98 mmol/L (96-109); Potassium 4.7 mmol/L (3.5-5.5); Sodium 136 mmol/L (135-145)
== END | disposition home or self-care (01) ==
LOC: LABWHC1 12:58
PROVIDERS: ATTEND Internal Medicine Clinical Cardiac Electrophysiology
DX: Z01.812 Encounter for preprocedural laboratory examination (principal); I48.0 Paroxysmal atrial fibrillation
CPT/HCPCS: 36415; 80051; 82565; 84520; 85027

== ENCOUNTER 2023-08-24 09:49 | Day surgery (SDC) | payer MEDICARE, OTHER ==
[2023-08-21 12:48] VITALS: BMI 26.5
[2023-08-24] MEDS: SODIUM CHLORIDE 0.9% 1,000 ML IV ONE (10:07)
[2023-08-24 10:46] LABS: Basophils % (A) 0 %; Eosinophils # (A) 0.2 k/uL (0-0.7); Eosinophils % (A) 3 %; HCT 43.5 % (39.0-53.0); Lymphocytes # (A) 1.8 k/uL (1.0-4.8); Lymphocytes % (A) 24 %; MCH 35.2 pg (25.0-35.0); MCHC 32.1 g/dL (31.0-37.0); MCV 109.7 fL (80.0-100.0); Macrocytosis Marked; Monocytes # (A) 0.5 k/uL (0-1.0); Monocytes % (A) 7 %; Neutrophils # (A) 4.8 k/uL (1.3-7.7); Neutrophils % (A) 64 %; Platelet Count 206 k/uL (150-450); RBC 3.97 m/uL (4.30-5.90); RDW 13.8 % (11.5-15.5); WBC 7.5 k/uL (3.8-10.6)
[2023-08-24] MEDS: IPRATROPIUM-ALBUTEROL 3 ML NEB INHALATION SCH (10:57)
[2023-08-24 11:07] LABS: ALT 17 U/L (4-49); AST 21 U/L (17-59); African American GFR (CKD) 78 (>60 ml/min/1.73 sqM); Alkaline Phosphatase 88 U/L (38-126); Anion Gap 5 mmol/L; Blood Urea Nitrogen 14 mg/dL (9-20); Calcium 8.8 mg/dL (8.4-10.2); Carbon Dioxide 27 mmol/L (22-30); Chloride 105 mmol/L (98-107); Glucose 100 mg/dL (74-99); Non-African American GFR(CKD) 67 (>60 ml/min/1.73 sqM); Potassium 4.6 mmol/L (3.5-5.1); Sodium 137 mmol/L (137-145); Total Bilirubin 0.8 mg/dL (0.2-1.3); Total Protein 6.6 g/dL (6.3-8.2)
[2023-08-24] MEDS ORDERED: LIDOCAINE 1% INJ 10MG/ML (20 ML MDV) ONE ×2 (11:16→11:20)
[2023-08-24] MEDS ORDERED: SUCCINYLCHOLINE CHLORIDE 200 MG/10 ML VIAL IV ONE (11:20)
[2023-08-24] MEDS ORDERED: PROTAMINE SULFATE 10 MG/ML 5 ML VIAL ONE (11:20)
[2023-08-24] MEDS ORDERED: HEPARIN SODIUM,PORCINE 10,000 UNIT/ML 1 ML VIAL ONE (11:20)
[2023-08-24] MEDS ORDERED: WATER FOR INJECTION, STERILE 10 ML VIAL IV ONE (11:20)
[2023-08-24] MEDS ORDERED: PHENYLEPHRINE-0.9% NACL SYG 1,000 MCG/10 ML SYRINGE ONE (11:20)
[2023-08-24] MEDS ORDERED: fentaNYL (PF) 50 MCG/ML 2 ML AMP ONE (11:20)
[2023-08-24] MEDS ORDERED: ISOPROTERENOL 250 MCG/1.25 ML SYR IV ONE (11:20)
[2023-08-24] MEDS ORDERED: PROPOFOL 10 MG/ML 20 ML VIAL IV ONE (11:20)
[2023-08-24] MEDS: HEPARIN SOD,PORK IN 0.45% NACL 25,000 UNIT in 0.45% NACL 1 250ML.BAG IV ONE (11:55)
[2023-08-24] MEDS: LIDOCAINE 1% INJ 10MG/ML (20 ML MDV) SQ ONE (11:57)
[2023-08-24] MEDS: IOPAMIDOL-370 100ML BTL INJ ONE (13:39)
[2023-08-24] MEDS ORDERED: HYDROcodone/APAP 5-325MG 1 EACH TAB PO PRN (13:58)
[2023-08-24] MEDS ORDERED: ACETAMINOPHEN TAB 325 MG TAB PO PRN (13:58)
--- NOTE | 2023-08-24 14:09 | P.HPCAR ---
History of Present Illness This is Dr. Vasquez dictating an H/P on this patient The patient was interviewed and examined IMPRESSION / ASSESSMENT: Paroxysmal atrial fibrillation with RVR Failed medical treatment Normal TSH Currently on Eliquis PLAN: Proceed with pulmonary vein isolation for management of atrial fibrillation Continue anticoagulation Heparin dose was calculated for the procedure HPI Patient continues to have episodes of palpitations He has documented paroxysmal atrial fibrillation with RVR with very difficult rate control He is on several psychiatric medications precluding most antiarrhythmic drugs ROS: No fever chills or rigors, no cough, phlegm or expectoration, no nausea, vomiting or diarrhea, no hematuria, dysuria, no musculoskeletal complaints, no strokes or seizures, no skin lesions. EXAMINATION: 107/66 mmHg 180/60 mmHg afebrile Pulse rate in the 60s Normal heart sounds no murmur gallop no rub No JVD No lower extremity edema REVIEW OF LABS, ECG & MEDICAL DATA Hemoglobin 14 white count normal platelet count 206,000 Normal electrolytes Normal liver function Normal renal function TSH 0.7, normal range Physical Exam Vitals: Vital Signs Temp Pulse Pulse Resp BP BP Pulse Ox 08/24/23 11:05 68 08/24/23 11:00 08/24/23 10:21 97.9 F 68 16 107/66 118/60 94 L Intake and Output 08/23/23 08/24/23 08/24/23 22:59 06:59 14:59 Intake Total 921 Balance 921 Intake: IV 921 Other: Weight 83.6 kg Past Medical History Past Medical History: Atrial Fibrillation, COPD, GERD/Reflux, Hypertension, Memory Impairment, Osteoarthritis (OA) Additional Past Medical History / Comment(s): easily confused History of Any Multi-Drug Resistant Organisms: None Reported Past Surgical History: Appendectomy, Back Surgery, Cardiac Ablation, Orthopedic Surgery Additional Past Surgical History / Comment(s): Back surgery in his mid 50's, left hand surgery, spinal cord implant(non-functioning). COLONOSCOPY, Past Anesthesia/Blood Transfusion Reactions: No Reported Reaction Smoking Status: Current every day smoker - Past Family History Father Family Medical History: Deep Vein Thrombosis (DVT) Mother Family Medical History: Cancer, Pulmonary Embolus Physical Examination Vital Signs Temp Pulse Pulse Resp BP BP Pulse Ox 08/24/23 11:05 68 08/24/23 11:00 68 08/24/23 10:21 97.9 F 68 16 107/66 118/60 94 L Intake and Output 08/23/23 08/24/23 08/24/23 22:59 06:59 14:59 Intake Total 921 Balance 921 Intake: IV 921 Other: Weight 83.6 kg Results 08/24/23 10:15 08/24/23 10:15 Cardiac Enzymes 08/24/23 Range/Units 10:15 AST 21 (17-59) U/L CBC 08/24/23 Range/Units 10:15 WBC 7.5 (3.8-10.6) k/uL RBC 3.97 L (4.30-5.90) m/uL Hgb 14.0 (13.0-17.5) gm/dL Hct 43.5 (39.0-53.0) % Plt Count 206 (150-450) k/uL Comprehensive Metabolic Panel 08/24/23 Range/Units 10:15 Sodium 137 (137-145) mmol/L Potassium 4.6 (3.5-5.1) mmol/L Chloride 105 (98-107) mmol/L Carbon Dioxide 27 (22-30) mmol/L BUN 14 (9-20) mg/dL Creatinine 1.14 (0.66-1.25) mg/dL Glucose 100 H (74-99) mg/dL Calcium 8.8 (8.4-10.2) mg/dL AST 21 (17-59) U/L ALT 17 (4-49) U/L Alkaline Phosphatase 88 (38-126) U/L Total Protein 6.6 (6.3-8.2) g/dL Albumin 4.0 (3.5-5.0) g/dL Current Medications Generic Name Dose Route Start Last Admin Trade Name Freq PRN Reason Stop Dose Admin Acetaminophen 650 mg 08/24/23 13:58 Acetaminophen Tab 325 Mg Tab PO 09/23/23 13:59 Q6HR PRN Mild Pain (Scale 1 to 3) Hydrocodone Bitart/Acetaminophen 1 each 08/24/23 13:58 Hydrocodone/Apap 5-325mg 1 Each Tab PO 09/23/23 13:59 Q4HR PRN Moderate Pain (Scale 4 to 6) Albuterol/Ipratropium 3 ml 08/24/23 11:00 08/24/23 10:57 Ipratropium-Albuterol 3 Ml Neb INHALATION 09/23/23 11:01 3 ml RT-BID GURDEEP Administration Apixaban 5 mg 08/24/23 21:00 Apixaban 5 Mg Tab PO 09/23/23 21:01 BID [facility] Protocol Sodium Chloride 1,000 mls @ 20 mls/hr 08/24/23 08:30 Saline 0.9% IV 09/23/23 08:31 .Q24H [facility] Lamotrigine 25 mg 08/25/23 12:00 Lamotrigine 25 Mg Tab PO 09/24/23 12:01 1200 [facility] Metoprolol Succinate 75 mg 08/25/23 09:00 Metoprolol Succinate (Er) 25 Mg Tab.Er.24h PO 09/24/23 09:01 DAILY [facility] Montelukast Sodium 10 mg 08/25/23 09:00 Montelukast 10 Mg Tab PO 09/24/23 09:01 DAILY [facility] Olanzapine 15 mg 08/24/23 20:00 Olanzapine 7.5 Mg Tab PO 09/23/23 20:01 2000 [facility] Quetiapine Fumarate 100 mg 08/24/23 21:00 Quetiapine 100 Mg Tab PO 09/23/23 21:01 HS [facility] Sodium Chloride 12 ml 08/24/23 13:58 Sodium Chloride 0.9% Flush 10 Ml Syringe IV 09/23/23 13:59 Q12HR PRN Line Flush Intake and Output 08/23/23 08/24/23 08/24/23 22:59 06:59 14:59 Intake Total 921 Balance 921 Intake: IV 921 Other: Weight 83.6 kg Patient Weight 08/25/23 06:59 Weight 83.6 kg 08/24/23 10:15 08/24/23 10:15
--- NOTE | 2023-08-24 14:15 | P.EPPROC ---
- EP Procedure Note Electrophysiology Procedure Note: PROCEDURE A. fib ablation with PVI DIAGNOSIS Successful atrial fibrillation, symptomatic, refractory to therapy RESULT No left atrial appendage mass seen on intracardiac echo, normal left atrial size Common left-sided veins with a large vestibule/antrum Large right inferior pulmonary vein Mildly thickened pericardium without effusion Successful A. fib ablation/pulmonary vein isolation of all veins using cryo- ablation Complete entrance block in all 4 veins confirmed No evidence for phrenic nerve injury Esophageal deflection YES PROCEDURE DETAILS Written informed consent prior to procedure. Patient brought to the EP lab. General anesthesia given. Heparin administered. A city maintained above 300 seconds Both groins prepped and draped per protocol and venous sheaths placed. Esophagus intubated, circa catheter for temperature monitoring an endoscope for possible esophageal deflection. Phrenic nerve monitoring performed. Esophageal temperature monitoring performed. Esophageal deflection performed if circa catheter overlapping with the balloon or circa temperature less than 27.5C Intracardiac echocardiography performed. Pericardium evaluated. Left atrial appendage evaluated. Left atrium evaluated along with pulmonary veins Transseptal catheterization performed under fluoroscopic guidance and intracardiac echo guidance Cryoablation sheath exchanged, balloon catheter along with achieve catheter placed in the left atrium. Pulmonary veins isolated in the following sequence: Left superior pulmonary vein followed by left inferior pulmonary vein, followed by right inferior pulmonary vein and lastly right superior pulmonary vein. Phrenic nerve stimulation along with capture thresholds within the SVC and right superior pulmonary vein to identify the phrenic nerve proximity to the cryo- balloon. Pulmonary veins isolated and confirmed with entrance and exit block. Phrenic nerve integrity confirmed at the end of the procedure Diagnostic catheters for the high right atrium, His bundle, coronary sinus placed. LA and RA pressures recorded RA pressure: LA pressure: 13/11/10 Diagnostic EP study with coronary sinus pacing and recording Baseline measurements: Sinus cycle length 980 ms, TN interval 157 ms, QRS 95 and QT 425 ms AV node Wenckebach block 390 ms Sinus node recovery times at 600, 500 and, 400 ms were 1346, 1350 and 122 0 ms Mildly prolonged corrected sinus node recovery times No evidence for slow pathway conduction or any SVT High-dose Isopril employed Burst stimulation in the high right atrium and the coronary sinus performed before and after infusing Isopril No inducible atrial fibrillation Venous sheaths were removed and hemostasis assured with a closure device. Patient extubated and transferred to recovery Increase procedural time This was a longer procedure than anticipated Transseptal access was difficult mostly on account of an aneurysmal septum. While transseptal access with a needle and an 8 Japanese sheath was straightforward, the cryo sheath would not pass through and numerous attempts had to be made with the wire in different pulmonary veins and different configurations Finally with the wire in the left inferior pulmonary vein we were able to guide the cryo sheath successfully into the left atrium and perform the ablation The left-sided veins were large. This is a common os with a large vestibule. Multiple ablations had to be performed in the vestibule for complete isolation of both veins While this was accomplished successfully it did require short multiple cryo lesions in and around the antrum/vestibule for complete isolation Access and occlusion of the right inferior pulmonary vein was difficult on account of very posteriorly directed and angulated vein as well as a large vein How we were able to successfully occlude the vein at the antral level and perform successful ablation PROCEDURES PERFORMED Diagnostic EP study CS pacing and recording Left and right transseptal catheterization Catheter the mapping of the tachycardia Intracardiac echocardiography Pulmonary vein isolation with transseptal and comprehensive EPS, [id number] Extended procedure duration Drug infusion, [id number]
--- NOTE | 2023-08-24 14:16 | P.PRLE ---
RE: Gerald Díaz Dear Hayden Duarte underwent successful pulmonary vein isolation/ablation for atrial fibrillation He will continue anticoagulation for at least 3 months and then we will reassess his [id number] score in the future once again Sincerely Michael Vasquez
[2023-08-24] MEDS: IV FLUID CONTINUATION 1,000 ML IV ONE (15:14)
[2023-08-24] MEDS: SODIUM CHLORIDE 0.9% 1,000 ML IV SCH (16:47)
[2023-08-24] MEDS: NICOTINE 14MG/24HR PATCH TRANSDERM SCH (16:48)
[2023-08-24] MEDS: APIXABAN 5 MG TAB PO SCH (20:01)
[2023-08-24] MEDS: OLANZapine 7.5 MG TAB PO SCH (20:01)
[2023-08-24] MEDS: QUEtiapine 100 MG TAB PO SCH (20:01)
[2023-08-25 07:50] VITALS: BP 106/70; RESP 16; TEMP 98.5
[2023-08-25] MEDS: MONTELUKAST 10 MG TAB PO SCH (09:09)
[2023-08-25] MEDS: METOPROLOL SUCCINATE (ER) 25 MG TAB.ER.24H PO SCH (09:10)
[2023-08-25 09:42] VITALS: PULSE 80
--- NOTE | 2023-08-25 09:47 | P.DS ---
Providers Attending physician: Michael Vasquez Primary care physician: [facility] [place] Course: This is a 67-year-old male who underwent A-fib ablation with PVI on 08/24/[address] Vasquez. Patient is doing well post procedure with no immediate complications noted. Femoral sites are soft with no hematoma noted. Telemetry reveals sinus mechanism. Patient denies any chest pain or pressure. He denies any shortness of breath. Vital signs are stable. The patient was deemed stable for discharge home today. Discharge diagnosis History of atrial fibrillation, status post A-fib ablation with PVI Nurse practitioner note has been reviewed by physician. Signing provider agrees with the documented findings, assessment, and plan of care documented by RAKE OPERATOR as a scribe. Plan - Discharge Summary Discharge Rx Participant: No New Discharge Prescriptions: Continue lamoTRIgine [LaMICtal] 200 mg PO QAM HYDROcodone/APAP 10-325MG [[place] 10-325] 1 tab PO TID PRN PRN Reason: Pain Metoprolol Succinate (ER) [Toprol XL] 75 mg PO DAILY Benztropine Mesylate [Cogentin] 0.5 mg PO HS Budesonide/Glycopyr/Formoterol [Breztri Aerosphere Inhaler] 2 puff INHALATION BID Budesonide [Pulmicort] 0.5 mg INHALATION BID Magnesium 250 mg PO DAILY L.acidoph,Paracasei, B.lactis [Probiotic] 1 each PO DAILY Cyanocobalamin (Vitamin B-12) [Vitamin B-12] 5,000 mcg PO DAILY Vitamin B Complex 1 each PO DAILY Ferrous Sulfate Oral Elixir [Feosol Liquid] 220 mg PO DAILY Potassium Gluconate 99 mg PO DAILY lamoTRIgine [LaMICtal] 25 mg PO 1200 QUEtiapine [SEROquel] 100 mg PO HS OLANZapine [ZyPREXA] 15 mg PO 2000 Apixaban [Eliquis] 5 mg PO BID 30 Days #60 tab Montelukast [Singulair] 10 mg PO DAILY Fexofenadine HCl [Gemma Hives] 180 mg PO DAILY Multivitamins, Thera [Multivitamin (formulary)] 1 tab PO DAILY Cholecalciferol [Vitamin D3 (25 Mcg = 1000 Iu)] 125 mcg PO DAILY Ascorbic Acid [Vitamin C] 1,000 mg PO DAILY Vitamin E (Dl,Tocopheryl Acet) [Vitamin E (400 Iu = 180 mg)] 400 unit PO DAILY Ginseng 525 mg PO DAILY Ubidecarenone [Co Q-10] 100 mg PO DAILY Ipratropium-Albuterol Nebulize [Duoneb 0.5 mg-3 mg/3 ml Soln] 3 ml INHALATION BID Flax Seed 1,000 mg PO DAILY Discharge Medication List HYDROcodone/APAP 10-325MG [Hampshire 10-325] 1 tab PO TID PRN 08/25/21 [History] OLANZapine [ZyPREXA] 15 mg PO 199908/25/21 [History] QUEtiapine [SEROquel] 100 mg PO HS 08/25/21 [History] lamoTRIgine [LaMICtal] 25 mg PO 1200 08/25/21 [History] lamoTRIgine [LaMICtal] 200 mg PO QAM 08/25/21 [History] Apixaban [Eliquis] 5 mg PO BID 30 Days #60 tab 09/02/21 [Rx] Metoprolol Succinate (ER) [Toprol XL] 75 mg PO DAILY 03/09/23 [History] Montelukast [Singulair] 10 mg PO DAILY 03/09/23 [History] Ascorbic Acid [Vitamin C] 1,000 mg PO DAILY 06/23/23 [History] Benztropine Mesylate [Cogentin] 0.5 mg PO HS 06/23/23 [History] Budesonide [Pulmicort] 0.5 mg INHALATION BID 06/23/23 [History] Budesonide/Glycopyr/Formoterol [Breztri Aerosphere Inhaler] 2 puff INHALATION BID 06/23/23 [History] Cholecalciferol [Vitamin D3 (25 Mcg = 1000 Iu)] 125 mcg PO DAILY 06/23/23 [History] Cyanocobalamin (Vitamin B-12) [Vitamin B-12] 5,000 mcg PO DAILY 06/23/23 [H istory] Ferrous Sulfate Oral Elixir [Feosol Liquid] 220 mg PO DAILY 06/23/23 [History] Fexofenadine HCl [Gemma Hives] 180 mg PO DAILY 06/23/23 [History] Ginseng 525 mg PO DAILY 06/23/23 [History] Ipratropium-Albuterol Nebulize [Duoneb 0.5 mg-3 mg/3 ml Soln] 3 ml INHALATION BID 06/23/23 [History] L.acidoph,Paracasei, B.lactis [Probiotic] 1 each PO DAILY 06/23/23 [History] Magnesium 250 mg PO DAILY 06/23/23 [History] Multivitamins, Thera [Multivitamin (formulary)] 1 tab PO DAILY 06/23/23 [History] Ubidecarenone [Co Q-10] 100 mg PO DAILY 06/23/23 [History] Vitamin B Complex 1 each PO DAILY 06/23/23 [History] Vitamin E (Dl,Tocopheryl Acet) [Vitamin E (400 Iu = 180 mg)] 400 unit PO DAILY 06/23/23 [History] Flax Seed 1,000 mg PO DAILY 08/21/23 [History] Potassium Gluconate 99 mg PO DAILY 08/21/23 [History] Follow up Appointment(s)/Referral(s): Michael Vasquez MD [STAFF PHYSICIAN] - 09/01/23 2:15 pm (Appointment will be at the [facility] location) Patient Instructions/Handouts: Cardiac Ablation (DC) Activity/Diet/Wound Care/Special Instructions: Post EP study - Ablation instructions 1. Keep access sites dry for 2 days. 2. No heavy lifting or straining for 2 days. 3. Avoid bending the hips repeatedly for 2 days. 4. You may go up and down stairs slowly Call if the following is noted 1. Bleeding, increasing swelling or pain at the access sites. 2. Increasing chest discomfort, especially upon taking a deep breath. 3. Increasing shortness of breath, at rest or with exertion. 4. Undue cough / phlegm 5. Difficulty or pain while swallowing. 6. Pain or change in color in the extremities. 7. Fever, chills, rigors. 8. Increasing headache or neurologic symptoms. 9. Dizziness, fainting, palpitations Do not stop Eliquis Discharge Disposition: HOME SELF-CARE
[2023-08-25] MEDS ORDERED: lamoTRIgine 25 MG TAB PO SCH (12:00)
== END 2023-08-25 12:00 | disposition home or self-care (01) ==
LOC: CATHEP 09:49 → 6NMEDSUR 14:00 → CATHEP 08-25 12:00
PROVIDERS: ATTEND Internal Medicine Clinical Cardiac Electrophysiology
DX: I48.0 Paroxysmal atrial fibrillation (principal); I10 Essential (primary) hypertension; J44.9 Chronic obstructive pulmonary disease, unspecified; K21.9 Gastro-esophageal reflux disease without esophagitis; M19.90 Unspecified osteoarthritis, unspecified site; F17.200 Nicotine dependence, unspecified, uncomplicated; Z79.01 Long term (current) use of anticoagulants; Z79.899 Other long term (current) drug therapy
CPT/HCPCS: 94640 ×3; 93623; 93662; 93656; 86900; 86901; 80053; 84443; 85025; 86850; C1894 ×2; C1769 ×3; C1760; C1730; C1759; C1893; C1733; C1766; S4990 ×2; J2001; Q9967; J1644

== ENCOUNTER → 2023-11-06 | Outpatient (CLI) | payer MEDICARE, OTHER ==
--- NOTE | 2023-11-06 15:44 | CTL ---
EXAMINATION TYPE: CT Low Dose Lung DATE OF EXAM: 11/06/2023 3:17 PM CLINICAL INDICATION:Male, 67 years old with history of Z12.2 SCREENING, F17.210 NICOTINE DEPENDENCE; SMOKER , history of tobacco use. COMPARISON: 06/09/2022. TECHNIQUE: Multiple axial non-contrast scans were obtained from approximately the lung apices through the upper abdomen. Coronal and sagittal reformatted images were obtained. Low dose technique was uti lized. CT DLP: 104.2 mGycm, Automated exposure control for dose reduction was used. CT Contrast: Contrast used: None Oral contrast used: None FINDINGS: ======== Lack of intravenous contrast and low dose technique limits the evaluation of the vascular and soft ti ssue structures. LUNGS: No evidence of pulmonary fibrosis. No evidence of focal consolidation, pneumothorax or pleural effusion. Centrilobular emphysema changes. There is a small trace right pleural effusion with associ ated atelectasis. Nodules: RUL: None. RML: None. RLL: None. IMANI: None. LLL: None. AIRWAY: Patent and unremarkable. HEART: Size within normal limits. MEDIASTINUM: No gross evidence of adenopathy. VASCULATURE: No aortic aneurysm. MUSCULOSKELETAL: No acute osseous abnormalities, fixation hardware throughout the spine with hardware intact. Vertebroplasty changes in dissecting changes also present. SOFT TISSUES/LYMPH NODES: Unremarkable. LOWER NECK: No significant findings. UPPER ABDOMEN: No significant findings. IMPRESSION: 1. No clinically significant pulmonary nodules. 2. Mild emphysema. 3. Small right pleural effusion with some cicatricial atelectasis, CT LUNG RAD AND CT CHEST RECOMMENDATION: Lung-Rad 1 Negative: Continue annual screening with LDCT in 12 months. S Modifier (other clinically significant findings): None Recommend smoking cessation (if current smoker), or continuation of smoking cessation (if prior smoke r). Annual screening for lung cancer with low-dose computed tomography is recommended in adults ages 55 to 77 years who have a 30 pack-year smoking history and currently smoke or have quit within the pa st 15 years. Screening should be discontinued once a person has not smoked for 15 years or develops a health problem that substantially limits life expectancy or the ability or willingness to have curat esthela lung surgery. Lung rads 2021 [email or web address]
== END | disposition home or self-care (01) ==
LOC: RADCTMAIN 14:48
PROVIDERS: ATTEND Family Medicine
DX: Z12.2 Encounter for screening for malignant neoplasm of respiratory organs (principal); J90 Pleural effusion, not elsewhere classified; J43.2 Centrilobular emphysema; F17.210 Nicotine dependence, cigarettes, uncomplicated
CPT/HCPCS: 71271